=== PATIENT | male | born 1965 | race Caucasian/White ===

== ENCOUNTER 2016-12-22 22:02 | Emergency (ER) | payer OTHER ==
[~2016-12-22] VITALS: Ht 180.3 cm; Wt 81.6 kg
[~2016-12-22 22:02] MED LIST: ASPIRIN81 M1 PO; DESYREL50 M1 PO; FLUARIX QU60 MCG/0.1 IMVAC; HCTZ PO; LISINOPRIL10 M1 PO; NITROSTAT0.4 MG SL
[2016-12-22 22:08] VITALS: BP 123/71
--- NOTE | 2016-12-23 01:27 | NUR ---
PT TAKEN TO OF
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
--- NOTE | 2016-12-23 01:42 | NUR ---
Dr. Colon evaluating patient
[2016-12-23 02:24] VITALS: BP 122/81
--- NOTE | 2016-12-23 02:24 | NUR ---
Patient discharged with v/s stable. Written and verbal after care instructions given and explained. Patient alert, oriented and verbalized understanding of instructions. Ambulatory with steady gait. All questions addressed prior to discharge. ID band removed. Patient advised to follow up with PMD. Rx of TRAMADOL 50MG AND FLEXERIL 10MG given. Patient educated on indication of medication including possible reaction and side effects. Opportunity to ask questions provided and answered.
== END 2016-12-23 02:24 | disposition home or self-care (01) ==
LOC: MED 22:02
DX: S13.4XXA Sprain of ligaments of cervical spine, initial encounter (principal); J45.909 Unspecified asthma, uncomplicated; I10 Essential (primary) hypertension; Z88.0 Allergy status to penicillin; Z79.82 Long term (current) use of aspirin; Z79.899 Other long term (current) drug therapy; Y09 Assault by unspecified means; Y93.89 Activity, other specified; Y92.89 Other specified places as the place of occurrence of the external cause; Y99.8 Other external cause status

== ENCOUNTER 2017-01-08 08:19 | Emergency (ER) | payer OTHER ==
[~2017-01-08] VITALS: Ht 180.3 cm; Wt 90.7 kg
--- NOTE | 2017-01-08 08:19 | NUR ---
Patient BIB [facility] to be evaluated as pre-book, transferred to bed 4. RN evaluating patient at bedside.
--- NOTE | 2017-01-08 08:20 | NUR ---
Dr. Tran evaluating patient at bedside.
[2017-01-08 08:21] VITALS: BP 202/109
--- NOTE | 2017-01-08 08:22 | NUR ---
EKG done and shown to Dr. Tran.
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
[2017-01-08] MEDS ORDERED: cloNIDine 0.1 MG TAB PO ONE (08:30)
--- NOTE | 2017-01-08 09:37 | NUR ---
Dr. Tran re-assessing patient at bedside.
[2017-01-08] MEDS ORDERED: HYDROCHLOROTHIAZIDE 25 MG TAB PO SCH (10:15)
[2017-01-08 10:44] VITALS: BP 169/98
--- NOTE | 2017-01-08 10:45 | NUR ---
Patient discharged with v/s stable. Written and verbal after care instructions given and explained. Patient verbalized understanding. Ambulatory with steady gait. ACCOMPANIED BY [facility] TO BE BOOKED All questions addressed prior to discharge. Advised to follow up with PMD.
== END 2017-01-08 10:45 ==
LOC: MED 08:19
DX: Z02.89 Encounter for other administrative examinations (principal); I10 Essential (primary) hypertension; J45.909 Unspecified asthma, uncomplicated; Z88.0 Allergy status to penicillin; Z79.82 Long term (current) use of aspirin

== ENCOUNTER 2017-01-26 09:49 | Emergency (ER) | payer OTHER ==
[~2017-01-26] VITALS: Ht 180.3 cm; Wt 90.7 kg
[~2017-01-26 09:49] MED LIST changes: +ASPI81CT89 PO; -ASPIRIN81 M1 PO; -DESYREL50 M1 PO; -FLUARIX QU60 MCG/0.1 IMVAC; -HCTZ PO; +INFL60SU14 IMVAC; +LISI10TA11 PO; -LISINOPRIL10 M1 PO; +NITR0.4T1 SL; -NITROSTAT0.4 MG SL; +ORE25 PO; +TRAZ-286 PO
--- NOTE | 2017-01-26 09:49 | NUR ---
0946--Patient was BIB [place] [facility] at this time.
--- NOTE | 2017-01-26 09:50 | NUR ---
PATIENT BIB [facility] FOR PRE-BOOK CLEARANCE . PT STATES HE HAS HX HTN, ASTHMA AND IS PRE-DIABETIC . DENIES N/V/D; SKIN IS PINK/WARM/DRY; AAOX4 WITH EVEN AND STEADY GAIT; LUNGS CLEAR BL; HR EVEN AND REGULAR; PT DENIES ANY FEVER, CP, SOB, OR COUGH AT THIS TIME; PATIENT STATES PAIN OF 0/10 AT THIS TIME; VSS;[facility] AT CHAIR SIDE. ER MD MADE AWARE OF PT STATUS.
[2017-01-26 09:51] VITALS: BP 103/67
--- NOTE | 2017-01-26 10:13 | NUR ---
Dr. Mcintyre evaluating patient.
--- NOTE | 2017-01-26 10:17 | NUR ---
EKG IN PROGRESS
--- NOTE | 2017-01-26 10:19 | NUR ---
Patient to bed 05.
--- NOTE | 2017-01-26 10:20 | NUR ---
XRAY at bedside.
--- NOTE | 2017-01-26 10:33 | NUR ---
PT IS SLEEPING.[facility] AT BEDSIDE;NO ACUTE DISTRESS NOTED AT THIS TIME;WILL CONTINUE TO MONITOR PT.
[2017-01-26 10:58] VITALS: BP 112/71
--- NOTE | 2017-01-26 10:58 | NUR ---
Patient discharged with v/s stable. Written and verbal after care instructions given and explained. Patient verbalized understanding. Ambulatory with in custody. All questions addressed prior to discharge. Advised to follow up with PMD.
== END 2017-01-26 10:58 ==
LOC: MED 09:49
DX: Z02.89 Encounter for other administrative examinations (principal); I10 Essential (primary) hypertension; J45.909 Unspecified asthma, uncomplicated; Z88.0 Allergy status to penicillin; R05 Cough
CPT/HCPCS: 71010; 93005; 99283; Q0092

== ENCOUNTER 2017-10-07 22:04 | Emergency (ER) | payer OTHER ==
[~2017-10-07] VITALS: Ht 180.3 cm; Wt 113.4 kg
[2017-10-07 22:09] VITALS: BP 142/84
--- NOTE | 2017-10-07 22:10 | NUR ---
SENT TO LOBBY IN STABLE CONDITION, SLEEPY, A/W FOR A BED, BHAVESH NOTED
--- NOTE | 2017-10-08 01:18 | NUR ---
PT AMB TO ER BED 1
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
[2017-10-08] MEDS ORDERED: KETOROLAC 60 MG/2 ML VIAL IM ONE (01:35)
--- NOTE | 2017-10-08 02:10 | NUR ---
[facility] AT BEDSIDE.
[2017-10-08 02:20] VITALS: BP 132/76
--- NOTE | 2017-10-08 02:21 | NUR ---
[facility] PT WAIVER FORM SIGNED BY PT-PT CHARLES
--- NOTE | 2017-10-08 02:22 | NUR ---
Patient discharged with v/s stable. Written and verbal after care instructions given and explained. Patient alert, oriented and verbalized understanding of instructions. Police with in custody. All questions addressed prior to discharge. ID band removed. Patient advised to follow up with PMD. Rx of MOTRIN 800MG, PREDNISONE 20MG given. Patient educated on indication of medication including possible reaction and side effects. Opportunity to ask questions provided and answered.
== END 2017-10-08 02:22 | disposition home or self-care (01) ==
LOC: MED 22:40
DX: J11.1 Influenza due to unidentified influenza virus with other respiratory manifestations (principal); J45.909 Unspecified asthma, uncomplicated; E11.9 Type 2 diabetes mellitus without complications; I10 Essential (primary) hypertension; Z88.0 Allergy status to penicillin
CPT/HCPCS: 96372; 99283; J1885

== ENCOUNTER 2017-11-25 14:56 | Emergency (ER) | payer OTHER ==
[~2017-11-25] VITALS: Ht 180.3 cm; Wt 90.7 kg
[2017-11-25 14:58] VITALS: BP 158/91
--- NOTE | 2017-11-25 14:58 | NUR ---
PT BIBA TO BED 3.
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
--- NOTE | 2017-11-25 15:10 | NUR ---
Patient being evaluated by physician at bedside.
[2017-11-25] MEDS ORDERED: LORazepam 2 MG/ML VIAL IVP ONE (15:25)
[2017-11-25 15:53] LABS: BASOPHILS # (AUTO) 0.6 K/uL (0.00-0.22); BASOPHILS % (AUTO) 4.5 % (0.0-2.0); EOSINOPHILS # (AUTO) 0.1 K/uL (0-0.4); EOSINOPHILS % (AUTO) 1.1 % (0.0-4.0); HEMATOCRIT 44.7 % (36-52); HEMOGLOBIN 14.9 g/dL (12.0-18.0); LYMPHOCYTES % (AUTO) 8.1 % (20.5-51.1); MEAN CORPUSCULAR HEMOGLOBIN 29 pg (27-31); MEAN CORPUSCULAR HGB CONC 33 g/dL (33-37); MEAN CORPUSCULAR VOLUME 86 fL (80-94); MONOCYTES # (AUTO) 0.5 K/uL (0.8-1.0); MONOCYTES % (AUTO) 4.1 % (1.7-9.3); NEUTROPHILS # (AUTO) 10.4 K/uL (1.8-7.7); NEUTROPHILS % (AUTO) 82.2 % (42.2-75.2); PLATELET COUNT (AUTO) 218 K/uL (140-450); RED CELL DISTRIBUTION WIDTH 14.4 % (11.6-13.7); WHITE BLOOD COUNT (AUTO) 12.6 K/uL (4.8-10.8)
[2017-11-25] MEDS ORDERED: LISINOPRIL 10 MG TAB ONE (16:00)
[2017-11-25 16:04] LABS: ANION GAP 13.2 (8-16); CARBON DIOXIDE 28.9 mmol/L (21-32); CREATININE 1.6 mg/dL (0.7-1.3); POTASSIUM 3.1 mmol/L (3.5-5.1)
[2017-11-25 16:09] LABS: ALBUMIN 3.7 g/dL (3.4-5.0); TOTAL BILIRUBIN 0.4 mg/dL (0.0-1.0)
--- NOTE | 2017-11-25 17:18 | NUR ---
Patient discharged with v/s stable. Written and verbal after care instructions given and explained. Patient alert, oriented and verbalized understanding of instructions. Ambulatory with steady gait. All questions addressed prior to discharge. ID band removed. Patient advised to follow up with PMD. Rx of LISINOPRIL 10MG/TAB given. Patient educated on indication of medication including possible reaction and side effects. Opportunity to ask questions provided and answered.
--- NOTE | 2017-11-25 17:30 | NUR ---
RN GOLD LEAF ROLLER PRIYA NOTIFIED FOR BUS PASS.
[2017-11-25 17:31] VITALS: BP 157/90
[2017-11-26] MEDS ORDERED: LISINOPRIL 20 MG TAB PO SCH (09:00)
== END 2017-11-25 17:18 | disposition home or self-care (01) ==
LOC: MED 14:56
DX: R07.89 Other chest pain (principal); F19.90 Other psychoactive substance use, unspecified, uncomplicated; F12.90 Cannabis use, unspecified, uncomplicated; J45.909 Unspecified asthma, uncomplicated; I10 Essential (primary) hypertension; Z79.82 Long term (current) use of aspirin; Z79.899 Other long term (current) drug therapy; Z88.0 Allergy status to penicillin
CPT/HCPCS: 36415; 71045; 80053; 84484; 85025; 93005; 96374; 99285; J2060; Q0092

== ENCOUNTER 2018-02-03 19:24 | Inpatient (IN) | payer MEDICAID, OTHER ==
[~2018-02-03] VITALS: Ht 180.3 cm; Wt 86.2 kg
[2018-02-03 19:41] VITALS: BP 93/53
--- NOTE | 2018-02-03 20:58 | NUR ---
TO ER BED 10
--- NOTE | 2018-02-03 21:00 | NUR ---
PATIENT IS A 52 Y/O MALE WHO PRESENTS TO THE ED C/O ABD PAIN. PT STATES THAT HIS STOMACH HAS BEEN HURTING FOR ABOUT 4 DAYS. PT REPORTS 6/10 ACHING RUQ ABD PAIN THAT DOES NOT RADIATE. PT DENIES CP, SOB, REPORTS VOMITING DENIES NAUSEA/DIARHEA, REPORTS CONSTIPATION. PT AAOX4, RR EVEN/UNALBORED. PT REPOSITIONED FOR COMFORT, BED IN LOWEST POSITION. ER MD DR. NIÑO NOTIFIED. WILL CONTINUE TO MONITOR.
--- NOTE | 2018-02-03 21:03 | NUR ---
PATIENT UNABLE TO PROVIDE URINE AT THIS TIME.
[2018-02-03] MEDS ORDERED: ONDANSETRON 4 MG/2 ML VIAL IVP ONE (21:20)
[2018-02-03] MEDS ORDERED: NACL 0.9% 1,500 ML IV ONE (21:20)
[2018-02-03] MEDS ORDERED: KETOROLAC 30 MG/ML VIAL IVP ONE (21:20)
[2018-02-03 21:55] LABS: BASOPHILS # (AUTO) 0.1 K/uL (0.00-0.22); BASOPHILS % (AUTO) 0.9 % (0.0-2.0); EOSINOPHILS % (AUTO) 0.4 % (0.0-4.0); HEMATOCRIT 50.9 % (36-52); HEMOGLOBIN 16.9 g/dL (12.0-18.0); LYMPHOCYTES # (AUTO) 1.8 K/uL (2.0-11.5); LYMPHOCYTES % (AUTO) 17.9 % (20.5-51.1); MEAN CORPUSCULAR HEMOGLOBIN 29 pg (27-31); MEAN CORPUSCULAR HGB CONC 33 g/dL (33-37); MEAN CORPUSCULAR VOLUME 86.4 fL (80-94); MONOCYTES # (AUTO) 0.9 K/uL (0.8-1.0); MONOCYTES % (AUTO) 8.7 % (1.7-9.3); NEUTROPHILS # (AUTO) 7.4 K/uL (1.8-7.7); NEUTROPHILS % (AUTO) 72.1 % (42.2-75.2); PLATELET COUNT (AUTO) 299 K/uL (140-450); RED BLOOD CELL COUNT(AUTO) 5.89 MIL/uL (4.20-6.10); RED CELL DISTRIBUTION WIDTH 14.6 % (11.6-13.7); WHITE BLOOD COUNT (AUTO) 10.2 K/uL (4.8-10.8)
[2018-02-03 22:03] LABS: ANION GAP 14.2 (8-16); CARBON DIOXIDE 28.4 mmol/L (21-32); CREATININE 2.6 mg/dL (0.7-1.3); POTASSIUM 3.6 mmol/L (3.5-5.1)
[2018-02-03 22:09] LABS: TOTAL BILIRUBIN 0.5 mg/dL (0.0-1.0)
[2018-02-03] MEDS ORDERED: DOCUSATE SODIUM 100 MG GELCAP PO PRN (22:55)
[2018-02-03] MEDS ORDERED: MORPHINE SULFATE 4 MG/ML SYR IVP PRN (22:55)
[2018-02-03] MEDS ORDERED: KETOROLAC 30 MG/ML VIAL IVP PRN (22:55)
[2018-02-03] MEDS ORDERED: ONDANSETRON 4 MG/2 ML VIAL IM/IVP PRN (22:55)
--- NOTE | 2018-02-03 22:55 | NUR ---
Patient will be admitted to care of DR. RICE. Admited to TELE. Will go to room 105B. Belongings list completed. Report to CARMEN SOMMER.
[2018-02-03 23:00] VITALS: BP 183/81
[2018-02-03] MEDS ORDERED: NITROGLYCERIN 0.4 MG TAB SL PRN (23:00)
[2018-02-03] MEDS ORDERED: traZODone 50 MG TAB PO PRN (23:00)
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
[2018-02-03] MEDS ORDERED: NICOTINE TRANSD SYS 21 MG/24 HR PATCH TD PRN (23:45)
[2018-02-03] MEDS ORDERED: TEMAZEPAM 15 MG CAP PO PRN (23:45)
[2018-02-03 23:48] LABS: AMYLASE 233 U/L (25-115); FREE T4 (FREE THYROXINE) 1.48 ng/dL (0.76-1.46); HDL CHOLESTEROL 67 mg/dL (40-60); LDL (CALC) 118 mg/dL (60-100); MAGNESIUM 1.9 mg/dL (1.8-2.4); PHOSPHORUS 4.8 mg/dL (2.5-4.9); THYROID STIMULATING HORMONE 1.23 uIU/mL (0.34-3.74); TRIGLYCERIDES 95 mg/dL (30-150)
[2018-02-03] MEDS: NACL 0.9% 1,000 ML IV SCH (23:48)
[2018-02-03] MEDS ORDERED: hydrALAZINE 20 MG/ML VIAL IVP PRN (23:50)
[2018-02-04] MEDS ORDERED: LISINOPRIL 20 MG TAB PO SCH (01:00)
[2018-02-04] MEDS ORDERED: HYDROCHLOROTHIAZIDE 25 MG TAB PO SCH (01:00)
[2018-02-04] MEDS: HYDROcodone/APAP 7.5/325 MG 1 TAB PO PRN ×3 (01:19→16:49)
--- NOTE | 2018-02-04 01:19 | NUR ---
SCHEDULED MEDICATION AND NORCO GIVEN FOR PAIN 04/26. MEDICATION TOLERATED WELL. WILL CONTINUE TO MONITOR.
[2018-02-04] MEDS ORDERED: MAGNESIUM HYDROXIDE 2400 MG/30 ML UDC PO PRN (02:05)
--- NOTE | 2018-02-04 02:19 | NUR ---
PT STATED PAIN LEVEL HAD DECREASED 5/10; A TOLERABLE LEVEL. PT QUICKLY FELL BACK ASLEEP. WILL CONTINUE TO MONITOR.
[2018-02-04 04:00] VITALS: BP 133/83
--- NOTE | 2018-02-04 04:00 | NUR ---
VITAL SIGNS TOLERATED WELL. NO S/S OF RESPIRATORY DISTRESS OR DISCOMFORT. PT QUICKLY RETURNED BACK TO SLEEP.
[2018-02-04] MEDS: NACL 0.9% 1,000 ML IV SCH ×4 (05:33→21:30)
--- NOTE | 2018-02-04 06:00 | NUR ---
PT CONTINUES TO SLEEP. WILL CONTINUE TO MONITOR.
--- NOTE | 2018-02-04 07:30 | NUR ---
ENDORSED PT CARE TO DAY SHIFT NURSE XENA FOR CONTINUITY OF CARE. PT IN STABLE CONDITION.
--- NOTE | 2018-02-04 07:31 | NUR ---
RECEIVED REPORT FROM THE CITY ATTORNEY NURSE AT BEDSIDE FOR CONTINUITY OF CARE. PT IS SLEEPING. WILL CONTINUE TO MONITOR PT.
[2018-02-04 08:00] VITALS: BP 157/87
--- NOTE | 2018-02-04 08:00 | NUR ---
PT IS AWAKE. V/S WITHIN NORMAL RANGE. INTRODUCED OURSELF AND UPDATE THE BOARD. PT IS ON ROOM AIR. NO SIGN OF DISTRESS NOTED. SKIN INTACT. IV ON R HAND 22G NS AT 150ML INFUSING. WILL CONTINUE TO MONITOR PT.
[2018-02-04 08:34] LABS: PROTHROMBIN TIME 10.8 secs (10.8-13.4)
[2018-02-04] MEDS ORDERED: ATORVASTATIN 20 MG TAB PO SCH (09:00)
[2018-02-04] MEDS ORDERED: LISINOPRIL 10 MG TAB PO SCH (09:00)
[2018-02-04] MEDS: SENNA 8.6 MG TAB PO SCH (09:05)
[2018-02-04] MEDS: ASPIRIN 81 MG TAB.CHEW PO SCH (09:06)
[2018-02-04] MEDS: HYDROCHLOROTHIAZIDE 25 MG TAB PO SCH ×2 (09:06→16:47)
[2018-02-04] MEDS: PANTOPRAZOLE 40 MG INJ VIAL IVP SCH (09:07)
--- NOTE | 2018-02-04 09:13 | NUR ---
ADMINISTERED MORNING MEDS. PT TOLERATED WELL. REQUESTED PAIN MED. GAVE NORCO.
--- NOTE | 2018-02-04 09:19 | NUR ---
PATIENT HAS BEEN SCREENED AND CATEGORIZED MODERATE NUTRITION RISK. PATIENT WILL BE SEEN WITHIN 3-5 DAYS OF ADMISSION. 02/06/18 - 02/08/[address] Addendum: 02/04/18 at [address] PATIENT HAS BEEN RESCREENED AND CATEGORIZED HIGH NUTRITION RISK. PATIENT WILL BE SEEN WITHIN 1-2 DAYS OF ADMISSION. 02/04/18 - 02/05/[address]
--- NOTE | 2018-02-04 11:20 | NUR ---
PT SLEEPING. NO SIGNS OF DISTRESS. WILL CONTINUE TO MONITOR PT.
[2018-02-04] MEDS ORDERED: traZODone 50 MG TAB PO PRN (11:58)
[2018-02-04 12:00] VITALS: BP 131/82
--- NOTE | 2018-02-04 13:23 | NUR ---
PT SLEEPING SOUNDLY. EMPTIED 700ML OF LORA URINE. REMINDED PT TO GIVE URINE SAMPLE. HUNG NEW IV FLUID. PT TOLERATING WELL. WILL CONTINUE TO MONITOR PT.
[2018-02-04 13:36] VITALS: BP 133/89
--- NOTE | 2018-02-04 14:31 | NUR ---
02/04/18 RD INITIAL ASSESSMENT COMPLETED PLEASE REFER TO NUTRITION ASSESSMENT UNDER CARE ACTIVITY FOR ESTIMATED NUTRITIONAL NEEDS. 1. CONTINUE NPO MEDICALLY APPROPRIATE 2. IF AND WHEN IT IS MEDICALLY APPROPRIATE, ADVANCE TO A CARDIAC DIET. 3. PROVIDED PT WITH PANCREATITIS NUTRITION THERAPY. 4. RD TO FOLLOW-UP 3-5 DAYS, MODERATE RISK SHAWN ACOSTA RD
--- NOTE | 2018-02-04 16:00 | NUR ---
PT SLEEPING SOUNDLY. NO SIGNS OF DISTRESS. WILL CONTINUE TO MONITOR PT.
--- NOTE | 2018-02-04 16:03 | NUR ---
CM NOTE INITIAL REVIEW DONE
[2018-02-04 16:34] VITALS: BP 165/89
--- NOTE | 2018-02-04 17:05 | NUR ---
PT ACCIDENTALLY PULLED OUT IV. NEW IV PLACED IN RIGHT HAND 22G WITH 2 ATTEMPTS. PT TOLERATED IT WELL. LOLA
[2018-02-04 17:10] LABS: APPEARANCE,URINE CLEAR (CLEAR); BILIRUBIN,URINE NEGATIVE (NEGATIVE); BLOOD, URINE 1+ (NEGATIVE); COLOR,URINE YELLOW (YELLOW); LEUKOCYTE ESTERASE ,URINE NEGATIVE (NEGATIVE); NITRITE, URINE NEGATIVE (NEGATIVE); UGLUCOSE NEGATIVE (NEGATIVE)
[2018-02-04 17:12] LABS: BARBITURATE, URINE NEG. ng/ml (NEG <=200); BENZODIAZEPINE, URINE NEG. ng/mL (NEG <=200); CANNABINOID, URINE POS. ng/mL (NEG <=50); COCAINE, URINE NEG. ng/mL (NEG <=300); OPIATE, URINE NEG. ng/mL (NEG <=2000); PHENCYCLIDINE SCREEN,URINE NEG. ng/mL (NEG <=25)
[2018-02-04 17:23] LABS: RBC,URINE 3-10 (FEW) /HPF (0-5); WBC,URINE 0-5 (RARE) /HPF (0-5)
[2018-02-04 17:24] LABS: CALCIUM OXALATE CRYSTALS,UR 0-10 /HPF (None Seen)
--- NOTE | 2018-02-04 19:15 | NUR ---
RECEIVED REPORT FROM DAY SHIFT NURSE TRE-ROS. PT SLEEPING IN BED. NO S/S OF RESPIRATORY DISTRESS OR DISCOMFORT NOTED AT THIS TIME. AOX4, ON ROOM AIR WITH RIGHT HAND 22G-NS 0.9% RUNNING AT 150ML/HR. NPO EXCEPT FOR MEDICATIONS. DISCUSSED PLAN OF CARE AND PT VERBALIZED UNDERSTANDING. UNDATED WHITE BOARD. BED IN LOWEST POSITION. BED SIDE TABLE AND CALL LIGHT WITHIN REACH. WILL CONTINUE TO MONITOR.
--- NOTE | 2018-02-04 19:15 | NUR ---
ENDORSED PT TO THE NIGHTSHIFT NURSE AT BEDSIDE FOR CONTINUITY OF CARE. PT IN STABLE CONDITION.
[2018-02-04 20:00] VITALS: BP 162/97
--- NOTE | 2018-02-04 20:20 | NUR ---
PT EXPERIENCING SOB CAUSED BY SUDDEN ANXIETY. PT STATED HE EXPERIENCES ANXIETY QUITE OFTEN WHEN IN ENCLOSED SPACES. SPOKE WITH DR. CULP. DR SAID SHE WOULD SPEAK WITH PT AND POSSIBLY ORDER ATIVAN FOR ANXIETY. WILL CONTINUE TO MONITOR.
[2018-02-04] MEDS ORDERED: LORazepam 1 MG TAB PO SCH (20:30)
[2018-02-04] MEDS: LISINOPRIL 20 MG TAB PO SCH (21:18)
[2018-02-04] MEDS: TEMAZEPAM 15 MG CAP PO SCH (21:18)
--- NOTE | 2018-02-04 21:18 | NUR ---
SCHEDULED MEDICATIONS GIVEN. PT TOLERATED WELL. WILL CONTINUE TO MONITOR.
--- NOTE | 2018-02-04 21:30 | NUR ---
NEW IVF NS 0.9% BAG HUNG RUNNING AT 150ML/HR. PT TOLERATED WELL. WILL CONTINUE TO MONITOR.
--- NOTE | 2018-02-04 23:20 | NUR ---
PT SLEEPING AT THIS TIME. NO S/S OF RESPIRATORY DISTRESS OR DISCOMFORT NOTED AT THIS TIME. WILL CONTINUE TO MONITOR.
[2018-02-05] VITALS (7 sets, daily range): BP systolic 150–178; BP diastolic 69–111
--- NOTE | 2018-02-05 01:05 | NUR ---
PT CONTINUES TO SLEEP. WILL CONTINUE TO MONITOR.
--- NOTE | 2018-02-05 03:12 | NUR ---
PT CONTINUES TO SLEEP. WILL CONTINUE TO MONITOR.
[2018-02-05] MEDS: NACL 0.9% 1,000 ML IV SCH ×4 (04:30→20:47)
--- NOTE | 2018-02-05 05:00 | NUR ---
PT SLEEPING AT THIS TIME. WILL CONTINUE TO MONITOR.
[2018-02-05 06:44] LABS: BASOPHILS # (AUTO) 0.1 K/uL (0.00-0.22); BASOPHILS % (AUTO) 1.4 % (0.0-2.0); EOSINOPHILS % (AUTO) 0.5 % (0.0-4.0); HEMATOCRIT 49.4 % (36-52); HEMOGLOBIN 16.4 g/dL (12.0-18.0); LYMPHOCYTES # (AUTO) 1.5 K/uL (2.0-11.5); LYMPHOCYTES % (AUTO) 16.6 % (20.5-51.1); MEAN CORPUSCULAR HEMOGLOBIN 29 pg (27-31); MEAN CORPUSCULAR HGB CONC 33 g/dL (33-37); MONOCYTES # (AUTO) 0.6 K/uL (0.8-1.0); MONOCYTES % (AUTO) 6.3 % (1.7-9.3); NEUTROPHILS # (AUTO) 6.7 K/uL (1.8-7.7); NEUTROPHILS % (AUTO) 75.2 % (42.2-75.2); PLATELET COUNT (AUTO) 268 K/uL (140-450); RED BLOOD CELL COUNT(AUTO) 5.68 MIL/uL (4.20-6.10); RED CELL DISTRIBUTION WIDTH 14.4 % (11.6-13.7)
[2018-02-05 07:00] LABS: ANION GAP 13.7 (8-16); CARBON DIOXIDE 25.7 mmol/L (21-32); CREATININE 1.2 mg/dL (0.7-1.3); POTASSIUM 3.4 mmol/L (3.5-5.1)
--- NOTE | 2018-02-05 07:05 | NUR ---
ENDORSED PT CARE TO DAY SHIFT NURSE SCOT FOR CONTINUITY OF CARE. PT IN STABLE CONDITION.
--- NOTE | 2018-02-05 07:06 | NUR ---
RECEIVED REPORT FROM DEALER SALES MANAGER RN. PATIENT IS AAOX4, NO S/SX OF ACUTE DISTRESS NOTED AT THIS TIME. HAS IV TO THE RIGHT HAND 22G, NS INFUSING AT 150 ML/HR. SITE IS CLEAN, DRY, PATENT AND INTACT. DISCUSSED PLAN OF CARE WITH PATIENT AND HE VERBALIZED UNDERSTANDING. BED IN LOWEST POSITION, SIDE RAILS UP X2, CALL LIGHT WITHIN REACH. WILL CONTINUE TO MONITOR.
--- NOTE | 2018-02-05 07:10 | NUR ---
ENDORSED PT CARE TO DAY SHIFT NURSE SCOT FOR CONTINUITY OF CARE. PT IN STABLE CONDITION. Addendum: 02/05/18 at 0728 by Sally Hernández RN PLEASE DISREGARD PREVIOUS NOTE. WRONG PATIENT.
[2018-02-05] MEDS: SENNA 8.6 MG TAB PO SCH (09:00)
[2018-02-05 09:06] LABS: T4 (THYROXINE) 10.8 ug/dL (4.5-12.0)
[2018-02-05] MEDS: HYDROCHLOROTHIAZIDE 25 MG TAB PO SCH ×2 (09:24→18:20)
[2018-02-05] MEDS: ASPIRIN 81 MG TAB.CHEW PO SCH (09:24)
[2018-02-05] MEDS: ATORVASTATIN 20 MG TAB PO SCH (09:25)
[2018-02-05] MEDS: PANTOPRAZOLE 40 MG INJ VIAL IVP SCH (09:25)
[2018-02-05] MEDS ORDERED: LORazepam 1 MG TAB PO SCH (09:30)
[2018-02-05] MEDS ORDERED: POTASSIUM CHLORIDE 10 MEQ TABER PO SCH (12:00)
[2018-02-05] MEDS ORDERED: LISINOPRIL 20 MG TAB PO SCH (12:00)
--- NOTE | 2018-02-05 16:10 | NUR ---
MADE DR REED AWARE OF PATIENTS ELEVATED BP. 178/101. WILL FOLLOW THROUGH WITH ORDERS.
[2018-02-05] MEDS ORDERED: METOPROLOL 50 MG TAB PO SCH (16:30)
--- NOTE | 2018-02-05 16:43 | NUR ---
METOPROLOL GIVEN TO PATIENT. NO SIGNS AND SYMPTOMS OF ACUTE DISTRESS NOTED AT THIS TIME.
--- NOTE | 2018-02-05 18:00 | NUR ---
RECHECKED PATIENTS BLOOD PRESSURE AFTER GIVING ONE TIME DOSE METOPROLOL 50 MG. IT WAS 156/93, HEART RATE 61. WILL ADMINISTER PATIENTS ORETIC BLOOD PRESSURE MEDICATION.
--- NOTE | 2018-02-05 19:17 | NUR ---
ENDORSED PATIENT TO KINDERGARTEN PARAPROFESSIONAL RN FOR CONTINUITY OF CARE. PATIENT IN STABLE CONDITION.
--- NOTE | 2018-02-05 19:18 | NUR ---
RECEIVED REPORT AT PT BEDSIDE FROM DAY SHIFT RN, FOR CONTINUITY OF CARE. PATIENT IS AWAKE, A/OX4, ON ROOM AIR. ABLE TO MAKE NEEDS KNOWN, ABLE TO FOLLOW COMMANDS. PT SKIN IS INTACT, WARM AND DRY. PATIENT HAS PERIPHERAL IV SITE TO RIGHT HAND 22G, ASYMPTOMATIC, INTACT, PATENT. SR/ST DEPRESSION ON MONITOR, RESPIRATIONS EVEN AND UNLABORED. DISCUSSED PLAN OF CARE WITH PT, PT VERBALIZED UNDERSTANDING. PT STABLE, NO SIGNS OF DISTRESS NOTED AT THIS TIME. BED IN LOWEST POSITION, CALL LIGHT WITHIN REACH. WILL CONTINUE TO MONITOR.
[2018-02-05] MEDS: LISINOPRIL 20 MG TAB PO SCH (20:31)
[2018-02-05] MEDS: METOPROLOL 50 MG TAB PO SCH (20:31)
[2018-02-05] MEDS: TEMAZEPAM 15 MG CAP PO SCH (20:31)
--- NOTE | 2018-02-05 20:35 | NUR ---
ADMINISTERED SCHEDULED MEDICATIONS PER ORDER, PT TOLERATED WELL. PT STABLE, NO SIGNS OF DISTRESS NOTED AT THIS TIME. BED IN LOWEST POSITION, CALL LIGHT WITHIN REACH. WILL CONTINUE TO MONITOR.
[2018-02-06] VITALS: BP 156/86
--- NOTE | 2018-02-06 | NUR ---
BLOOD PRESSURE NOT ELEVATED NOW, HEART RATE IS SABRINA, ALL OTHER VITAL SIGNS WNL. PT STABLE, NO SIGNS OF DISTRESS NOTED AT THIS TIME. BED IN LOWEST POSITION, CALL LIGHT WITHIN REACH. WILL CONTINUE TO MONITOR.
--- NOTE | 2018-02-06 02:25 | NUR ---
PT STABLE, NO SIGNS OF DISTRESS NOTED AT THIS TIME. BED IN LOWEST POSITION, CALL LIGHT WITHIN REACH. WILL CONTINUE TO MONITOR.
[2018-02-06 04:00] VITALS: BP 158/87
--- NOTE | 2018-02-06 04:00 | NUR ---
VITAL SIGNS WITHIN NORMAL LIMITS, WITH THE EXCEPTION OF SLIGHTLY ELEVATED BP. PT STABLE, NO SIGNS OF DISTRESS NOTED AT THIS TIME. BED IN LOWEST POSITION, CALL LIGHT WITHIN REACH. WILL CONTINUE TO MONITOR.
[2018-02-06] MEDS: NACL 0.9% 1,000 ML IV SCH ×3 (04:50→16:41)
--- NOTE | 2018-02-06 05:30 | NUR ---
IV INFILTRATED, NEW IV WAS STARTED ON LEFT HAND 24G. PT TOLERATED WELL.
--- NOTE | 2018-02-06 06:26 | NUR ---
PT STABLE, NO SIGNS OF DISTRESS NOTED AT THIS TIME. BED IN LOWEST POSITION, CALL LIGHT WITHIN REACH. WILL CONTINUE TO MONITOR.
--- NOTE | 2018-02-06 07:14 | NUR ---
ENDORSED PT TO DAYS SHIFT RN FOR CONTINUITY OF CARE. PT IN STABLE CONDITION.
--- NOTE | 2018-02-06 07:15 | NUR ---
RECEIVED REPORT FROM THE ACCOUNTING OFFICE MANAGER NURSE AT BEDSIDE FOR CONTINUITY OF CARE. PT IS SLEEPING. IV ON L HAND 24G NS AT 150ML/HR. ROOM AIR. WILL BE BACK TO ASSESS PT.
[2018-02-06 08:00] VITALS: BP 167/88
[2018-02-06] MEDS ORDERED: LORazepam 1 MG TAB PO SCH (08:30)
[2018-02-06] MEDS: HYDROCHLOROTHIAZIDE 25 MG TAB PO SCH ×2 (09:05→16:38)
[2018-02-06] MEDS: PANTOPRAZOLE 40 MG INJ VIAL IVP SCH (09:05)
[2018-02-06] MEDS: METOPROLOL 50 MG TAB PO SCH ×2 (09:05→21:24)
[2018-02-06] MEDS: SENNA 8.6 MG TAB PO SCH (09:06)
[2018-02-06] MEDS: ATORVASTATIN 20 MG TAB PO SCH (09:06)
--- NOTE | 2018-02-06 09:10 | NUR ---
ADMINISTERED MORNING MEDS. PT TOLERATED WELL. C/O ANXIETY. ASKED MD FOR ORDER FOR ATIVAN. ADMINISTERED TO PT. WILL CONTINUE TO MONITOR PT.
[2018-02-06 11:03] LABS: BASOPHILS # (AUTO) 0.1 K/uL (0.00-0.22); BASOPHILS % (AUTO) 0.9 % (0.0-2.0); EOSINOPHILS % (AUTO) 0.1 % (0.0-4.0); HEMATOCRIT 49.3 % (36-52); HEMOGLOBIN 16.5 g/dL (12.0-18.0); LYMPHOCYTES % (AUTO) 15.9 % (20.5-51.1); MEAN CORPUSCULAR HEMOGLOBIN 29 pg (27-31); MEAN CORPUSCULAR HGB CONC 34 g/dL (33-37); MEAN CORPUSCULAR VOLUME 85.4 fL (80-94); MONOCYTES # (AUTO) 0.5 K/uL (0.8-1.0); NEUTROPHILS # (AUTO) 4.9 K/uL (1.8-7.7); NEUTROPHILS % (AUTO) 76.1 % (42.2-75.2); PLATELET COUNT (AUTO) 285 K/uL (140-450); RED BLOOD CELL COUNT(AUTO) 5.77 MIL/uL (4.20-6.10); RED CELL DISTRIBUTION WIDTH 14.3 % (11.6-13.7); WHITE BLOOD COUNT (AUTO) 6.5 K/uL (4.8-10.8)
[2018-02-06 11:14] LABS: ANION GAP 17.4 (8-16); CARBON DIOXIDE 24.5 mmol/L (21-32); CREATININE 1.2 mg/dL (0.7-1.3); POTASSIUM 3.9 mmol/L (3.5-5.1)
--- NOTE | 2018-02-06 11:21 | NUR ---
PER DR. REED, PT IS TO HAVE A FULL LIQUID DIET. DR. CAT WILL BE HERE FOR CONSULT AND WILL HAVE CHOLECYSTECTOMY TOMORROW. WILL BE NPO AT MIDNIGHT. CONTACT FNS TO BRING HIM A TRAY FOR LUNCH. FOR NOW, START WITH JELLO. NEW FLUID BAG HUNG.
[2018-02-06 11:48] LABS: MAGNESIUM 1.4 mg/dL (1.8-2.4); PHOSPHORUS 2.7 mg/dL (2.5-4.9)
[2018-02-06 12:00] VITALS: BP 167/85
--- NOTE | 2018-02-06 13:12 | NUR ---
PT TAKING A SHOWER. D/C'D PT FROM IV. WRAPPED WITH GLOVE AND TAPE SO IV DOEN'T GET WET. EXTRA TOWELS AN SOAP. REMOVED THE TELE MONITOR. WILL CONTINUE TO MONITOR PT.
--- NOTE | 2018-02-06 14:39 | NUR ---
PT IS RESTING COMFORTABLY. NO SIGNS OF DISTRESS. WILL CONTINUE TO MONITOR PT.
[2018-02-06 16:00] VITALS: BP 139/84
--- NOTE | 2018-02-06 16:26 | NUR ---
IV GOT PULLED OUT. RESTARTED ANOTHER IV ON THE L HAND 22G. 1 ATTEMPT. PT TOLERATED WELL. WOULD LIKE TO GO FOR A WALK. EXPLAINED TO PT, PUSH THE IV POLE ALONG WITH HIM. WILL BE FINE. WILL CONTINUE TO MONITOR PT.
--- NOTE | 2018-02-06 16:38 | NUR ---
SIGNED THE CONSENT FORM FOR THE [employer] FOR TOMORROW WITH DR. CAT. PT WILL BE NPO AFTER MIDNIGHT. PT WOULD LIKE TO GO FOR A WALK. WILL CONTINUE TO MONITOR PT.
--- NOTE | 2018-02-06 19:15 | NUR ---
ENDORSED PT TO THE ASSOCIATE PROFESSOR OF MEDICINE NURSE AT BEDSIDE FOR CONTINUITY OF CARE. PT IS IN STABLE CONDITION. HUNG A NEW IV BAG. PT REQUESTING PAIN MED. ENDORSED TO RN.
--- NOTE | 2018-02-06 19:25 | NUR ---
RECEIVED REPORT FROM DAY SHIFT RN, PATIENT RESTING IN BED, AWAKE ALERT ORIENTED X4, NO S/S OF DISTRESS NOTED, RESPIRATION EVEN AND UNLABORED, ON ROOM AIR. STATED PAIN 6/10, WILL ADMINISTER PAIN MEDICATION ORDERED. IV PATENT AND INTACT, INFUSING NS AT 150ML/HR. PLAN OF CARE DISCUSSED, PATIENT VERBALIZED UNDERSTANDING, CALL LIGHT WITH REACH, SAFETY MEASURE ENSURED, WILL CONTINUE TO MONITOR.
[2018-02-06] MEDS: HYDROcodone/APAP 7.5/325 MG 1 TAB PO PRN (19:42)
--- NOTE | 2018-02-06 19:42 | NUR ---
BP 156/80, HR 65, PAIN MEDICATION ADMINISTERED ORDERED, WILL CONTINUE TO MONITOR.
[2018-02-06 19:52] VITALS: BP 156/80
[2018-02-06] MEDS: LISINOPRIL 20 MG TAB PO SCH (21:24)
[2018-02-06] MEDS: TEMAZEPAM 15 MG CAP PO SCH (21:24)
--- NOTE | 2018-02-06 21:27 | NUR ---
DUE MEDICATION GIVEN, PATIENT TOLERATED WELL. NO S/S OF DISTRESS NOTED, PATIENT VERBALIZED UNDERSTANDING OF NOT TO EAT AND DRINK AFTER MIDNIGHT. CALL LIGHT WITHIN REACH, SAFETY MEASURE ENSURED, WILL CONTINUE TO MONITOR.
--- NOTE | 2018-02-06 23:40 | NUR ---
PATIENT IS SLEEPING, NO S/S OF DISTRESS NOTED, RESPIRATION EVEN AND UNLABORED, CALL LIGHT WITHIN REACH, SAFETY MEASURE ENSURED, WILL CONTINUE TO MONITOR.
[2018-02-07] VITALS (11 sets, daily range): BP systolic 82–213; BP diastolic 42–133
[2018-02-07] MEDS: NACL 0.9% 1,000 ML IV SCH ×4 (00:33→20:13)
--- NOTE | 2018-02-07 01:20 | NUR ---
NO CHANGE IN CONDITION, PATIENT IS SLEEPING, NO S/S OF DISTRESS NOTED, RESPIRATION EVEN AND UNLABORED, CALL LIGHT WITHIN REACH, SAFETY MEASURE ENSURED, WILL CONTINUE TO MONITOR.
--- NOTE | 2018-02-07 03:21 | NUR ---
PATIENT IS SLEEPING, NO S/S OF DISTRESS NOTED, RESPIRATION EVEN AND UNLABORED, CALL LIGHT WITHIN REACH, SAFETY MEASURE ENSURED, WILL CONTINUE TO MONITOR.
--- NOTE | 2018-02-07 05:45 | NUR ---
PATIENT IS SLEEPING, NO S/S OF DISTRESS NOTED, RESPIRATION EVEN AND UNLABORED, CALL LIGHT WITHIN REACH, SAFETY MEASURE ENSURED, WILL CONTINUE TO MONITOR.
[2018-02-07 07:03] LABS: BASOPHILS # (AUTO) 0.1 K/uL (0.00-0.22); BASOPHILS % (AUTO) 0.9 % (0.0-2.0); EOSINOPHILS % (AUTO) 0.8 % (0.0-4.0); HEMATOCRIT 49.6 % (36-52); HEMOGLOBIN 16.5 g/dL (12.0-18.0); LYMPHOCYTES # (AUTO) 1.8 K/uL (2.0-11.5); LYMPHOCYTES % (AUTO) 30.1 % (20.5-51.1); MEAN CORPUSCULAR HEMOGLOBIN 29 pg (27-31); MEAN CORPUSCULAR HGB CONC 33 g/dL (33-37); MONOCYTES # (AUTO) 0.6 K/uL (0.8-1.0); MONOCYTES % (AUTO) 9.6 % (1.7-9.3); NEUTROPHILS # (AUTO) 3.5 K/uL (1.8-7.7); NEUTROPHILS % (AUTO) 58.6 % (42.2-75.2); PLATELET COUNT (AUTO) 267 K/uL (140-450); RED BLOOD CELL COUNT(AUTO) 5.77 MIL/uL (4.20-6.10); RED CELL DISTRIBUTION WIDTH 14.2 % (11.6-13.7)
--- NOTE | 2018-02-07 07:12 | NUR ---
ENDORSED PLAN OF CARE TO DAY SHIFT, PATIENT IS IN STABLE CONDITION.
--- NOTE | 2018-02-07 07:13 | NUR ---
RECEIVED REPORT FROM GARY. PT SLEEPING QUIETLY. RESPIRATIONS ARE EVEN, UNLABORED. SKIN COLOR WITHIN NORMAL LIMITS. IV FLUIDS INFUSING. IV SITE WITHIN NORMAL LIMITS. APPEARS IN NO ACUTE DISTRESS. PLAN OF CARE REVIEWED. CALL STUBBS AT BEDSIDE. BED LOCKED IN LOW POSITION. SIDE RAILS UPX2. NO IMMEDIATE NEEDS AT THIS TIME. WILL CONTINUE TO MONITOR.
[2018-02-07 07:26] LABS: MAGNESIUM 1.5 mg/dL (1.8-2.4)
[2018-02-07 07:28] LABS: ANION GAP 11.3 (8-16); CARBON DIOXIDE 29.5 mmol/L (21-32); CREATININE 1.2 mg/dL (0.7-1.3); POTASSIUM 3.8 mmol/L (3.5-5.1)
[2018-02-07] MEDS: METOPROLOL 50 MG TAB PO SCH ×2 (08:27→20:51)
[2018-02-07] MEDS: SENNA 8.6 MG TAB PO SCH (08:28)
[2018-02-07] MEDS: ATORVASTATIN 20 MG TAB PO SCH (08:28)
[2018-02-07] MEDS: HYDROCHLOROTHIAZIDE 25 MG TAB PO SCH ×2 (08:28→17:00)
[2018-02-07] MEDS: PANTOPRAZOLE 40 MG INJ VIAL IVP SCH (08:29)
--- NOTE | 2018-02-07 08:30 | NUR ---
SCHEDULED MEDS GIVEN. PT TOLERATED WELL. PT REPORTS LOOSE STOOLS; SENNA HELD. HEART RATE 57. METOPROLOL HELD. PLAN OF CARE REVIEWED. ALL PERSONAL ITEMS REMOVED. CHLORHEXADINE WIPES PROVIDED FOR PREOP SKIN CARE. WILL CONTINUE TO MONITOR.
[2018-02-07] MEDS ORDERED: BUPIVACAINE-MPF 0.25% 30 ML VIAL INJ ONE (10:57)
[2018-02-07] MEDS ORDERED: MAG SULF 2000 MG/WATER PREMIX 50 ML IV SCH (11:00)
[2018-02-07] MEDS ORDERED: fentaNYL 0.05 MG/ML VIAL ONE (11:05)
[2018-02-07] MEDS ORDERED: MIDAZOLAM 2 MG/2 ML VIAL ONE (11:05)
[2018-02-07] MEDS ORDERED: MEPERIDINE 50 MG/ML SYR ONE (11:05)
--- NOTE | 2018-02-07 11:47 | NUR ---
MAGNESIUM INFUSING. IV SITE WITHIN NORMAL LIMITS. PT AWAITING OR. WILL CONTINUE TO MONITOR.
--- NOTE | 2018-02-07 11:51 | NUR ---
PT HEADING TO OR.
[2018-02-07] MEDS ORDERED: hydrALAZINE 20 MG/ML VIAL ONE (12:00)
[2018-02-07] MEDS ORDERED: SEVOFLURANE 250 ML BTL INH ONE (12:00)
[2018-02-07] MEDS ORDERED: LABETALOL 100 MG/20 ML VIAL ONE ×2 (12:00→15:37)
[2018-02-07] MEDS ORDERED: SUCCINYLCHOLINE CHLORIDE 200 MG/10 ML VIAL IVP ONE (12:00)
[2018-02-07] MEDS ORDERED: PROPOFOL 200 MG/20 ML VIAL IV ONE (12:00)
[2018-02-07] MEDS ORDERED: ROCURONIUM 50 MG/5 ML VIAL IV ONE (12:00)
[2018-02-07] MEDS ORDERED: KETOROLAC 60 MG/2 ML VIAL IM ONE (12:00)
[2018-02-07] MEDS ORDERED: LEVOFLOXACIN 500 MG/D5W PREMIX 100 ML IV ONE ×2 (12:11→14:05)
[2018-02-07] MEDS ORDERED: NACL 0.9% 1,000 ML IV SCH (12:44)
[2018-02-07] MEDS ORDERED: HYDROmorphone 1 MG/ML AMP IVP PRN (12:45)
[2018-02-07] MEDS ORDERED: diphenhydrAMINE 50 MG/ML VIAL IVP PRN (12:45)
[2018-02-07] MEDS ORDERED: ONDANSETRON 4 MG/2 ML VIAL IVP PRN (12:45)
[2018-02-07] MEDS ORDERED: MEPERIDINE 25 MG/ML SYR IVP PRN (12:45)
[2018-02-07] MEDS ORDERED: MORPHINE SULFATE 2 MG/ML SYR IVP PRN (14:05)
[2018-02-07] MEDS ORDERED: ACETAMINOPHEN 325 MG TAB PO PRN (14:05)
[2018-02-07] MEDS ORDERED: MORPHINE SULFATE 4 MG/ML SYR IV PRN (14:05)
--- NOTE | 2018-02-07 15:05 | NUR ---
PT INTUBATED BY ANESTHESIOLOGIST WITH 7.5 ETT SECURED @25 TEETH/GUMS. PT PLACED ON VENT WITH SETTINGS PROVIDED BY PHYSICIAN. ETT PLACEMENT CONFIRMED WITH CO2 DETECTOR AND BILATERAL BREATH SOUNDS. STAT CXR ORDERED. ZAID HARMAN BEDSIDE FOR INTUBATION. VENT IS PLUGGED INTO A RED OUTLET WITH ALARMS ON AND FUNCTIONING. AMBU BAG IS PRESENT AT BEDSIDE. WILL CONTINUE TO MONITOR.
[2018-02-07] MEDS ORDERED: LABETALOL 100 MG/20 ML VIAL IV ONE (15:55)
--- NOTE | 2018-02-07 16:45 | NUR ---
RECEIVED PATIENT FOR CONTINUITY OF CARE FROM CHILDREN'S TUTOR NURSERY. PATIENT IS AAOX4, ABLE TO MAKE NEEDS KNOWN AND FOLLOW SIMPLE COMMANDS. PATIENT WAS INTUBATED IN SURGERY PER RN. HE HAS EET TO VENT, SETTING IS FIO2 40%, TV 500, AC 12, PEEP 5. PATIENT SKIN INTACT, HAS PERIPHERAL IV TO LEFT HAND, HOWEVER IT WAS PULLED OUT DURING TRANSFER FROM RECOVERY ROOM. ST ON MONITOR AT THIS TIME. CALL LIGHT WITHIN REACH, WILL CONTINUE TO MONITOR CLOSELY.
--- NOTE | 2018-02-07 16:52 | NUR ---
PT TRANSPORTED FROM OR TO ICU. MANUALLY VENTILATED WITHOUT INCIDENT AND PLACED ON VENT. PT AGITATED AT THIS TIME. ETT REMAINS SECURE WITH A PATENT AIRWAY. VENT ALARMS REMAIN ON AND FUNCTIONING.
--- NOTE | 2018-02-07 17:00 | NUR ---
REVIEWED CXR ETT 0.5 CM ABOVE ZEN. PULLED ETT BACK FROM 25 CM TO 22 CM. WILL REPEAT CXR FOR CORRECT ETT PLACEMENT. NURSE AWARE. VT ARE ADEQUATE WITH BILATERAL BREATH SOUNDS.
[2018-02-07] MEDS ORDERED: PROPOFOL 1000 MG/100 ML PREMIX 100 ML IV PRN (17:10)
[2018-02-07] MEDS ORDERED: LORazepam 2 MG/ML VIAL IM/IVP SCH (17:14)
[2018-02-07] MEDS ORDERED: NACL 0.9% 1,000 ML IV ONE (19:00)
--- NOTE | 2018-02-07 19:16 | NUR ---
ENDORSED BEDSIDE REPORT TO KENNEL ASSISTANT RN FOR CONTINUITY OF CARE, PATIENT IS IN NO DISTRESS AT THIS TIME.
--- NOTE | 2018-02-07 19:42 | NUR ---
RECEIVED PT ON VENT SUPPORT AT DOCUMENTED SETTINGS, OBTAINED SPUTUM SAMPLE FOR LAB, SUCTIONED SCANT AMOUNT OF CLEAR YELLOW THIN SECRETIONS, NO RESP DISTRESS OR SOB NOTED AT THIS TIME, PT RESPONSIVE AND COOPERATIVE, 7.5 ETT SECURED AT 22 CM AT THE TEETH/GUM, ALARMS SET AND AUDIBLE, AMBU BAG AT BEDSIDE, VENT PLUGGED INTO RED OUTLET, PULSE OX ON, WILL CONT TO MONITOR.
--- NOTE | 2018-02-07 20:10 | NUR ---
AT BEDSIDE TO CHECK THE PT. WILL FOLLOW THE ORDER.
[2018-02-07] MEDS: LISINOPRIL 20 MG TAB PO SCH (21:00)
[2018-02-07] MEDS: TEMAZEPAM 15 MG CAP PO SCH (21:00)
--- NOTE | 2018-02-07 21:00 | NUR ---
HOLD SCHEDULED PO MEDICATIONS LOPRESSOR, LISINOPRIL AND TEMAZEPAM AT THIS TIME BECAUSE PT IS INTUBATED. NOTIFIED TO DR. CULP.
--- NOTE | 2018-02-07 21:10 | NUR ---
ORDER TO EXTUBATE PER DR JUARES, PT EXTUBATED SUCCESSFULLY WITH NO INCIDENT, PT PLACED ON 2LPM NC, TOLERATING WELL O2 SAT 100%, WILL CONT TO MONITOR.
--- NOTE | 2018-02-07 21:20 | NUR ---
AND AT BEDSIDE TO CHECK THE PT . DR. JUARES EXTUBATED PT [id number]. NO ACUTE RESPIRATORY DISTRESS NOTED. PT TOLERATED WELL. CAME TO SEE THE PT AT 2109. WILL FOLLOW THE ORDER. PT IS AAO X4, ABLE TO TALK, ABLE TO MAKE NEEDS KNOWN. SINUS SABRINA TO SR ON THE TOOL AND DIE REPAIR. WILL CONTINUE TO MONITOR.
[2018-02-07 21:32] LABS: HEMATOCRIT 48.2 % (36-52); HEMOGLOBIN 15.7 g/dL (12.0-18.0); MEAN CORPUSCULAR HEMOGLOBIN 28 pg (27-31); MEAN CORPUSCULAR HGB CONC 33 g/dL (33-37); MEAN CORPUSCULAR VOLUME 87.3 fL (80-94); PLATELET COUNT (AUTO) 249 K/uL (140-450); RED BLOOD CELL COUNT(AUTO) 5.52 MIL/uL (4.20-6.10); WHITE BLOOD COUNT (AUTO) 13.8 K/uL (4.8-10.8)
[2018-02-07 21:44] LABS: ANION GAP 13.5 (8-16); CARBON DIOXIDE 29.2 mmol/L (21-32); CREATININE 1.7 mg/dL (0.7-1.3); POTASSIUM 4.7 mmol/L (3.5-5.1)
[2018-02-07 21:59] LABS: LYMPHOCYTES % (MANUAL) 1 % (20-46); MONOCYTES % (MANUAL) 6 % (5-12)
--- NOTE | 2018-02-07 23:15 | NUR ---
PT IS IN ASLEEP, AROUSABLE TO VOICE. AAO X4, VERBALLY RESPONSIVE. SB ON THE MONITOR. NO ACUTE DISTRESS NOTED. DENIES PAIN. BP 128/70 AT THIS TIME. CALL LIGHT WITHIN REACH. WILL CONTINUE TO MONITOR.
[2018-02-08] VITALS (12 sets, daily range): BP systolic 119–166; BP diastolic 61–102
--- NOTE | 2018-02-08 01:00 | NUR ---
PT IS AWAKE AT THIS TIME. AAO X4, ABLE TO MAKE NEEDS KNOWN. NO ACUTE DISTRESS NOTED. O2 SAT 100% AT O2 2L/M VIA NC. SB TO SR ON THE MONITOR. BP 141/82 NOTED. HOB ELEVATED 30 DEGREE, CALL LIGHT WITHIN REACH. WILL CONTINUE TO MONITOR.
--- NOTE | 2018-02-08 02:40 | NUR ---
PT IS IN ASLEEP, AROUSABLE TO VOICE. NO ACUTE RESPIRATORY DISTRESS NOTED. 100% O2 SAT WITH O2 2L/M VIA NC. BP 111/60 NOTED. SR TO SB ON THE MONITOR. WILL CONTINUE TO MONITOR.
[2018-02-08] MEDS: NACL 0.9% 1,000 ML IV SCH ×3 (03:33→16:54)
[2018-02-08] MEDS: HYDROcodone/APAP 5/325 MG 1 TAB TAB PO PRN ×4 (03:39→22:33)
--- NOTE | 2018-02-08 03:50 | NUR ---
PT COMPLAINT ABOUT ABDOMINAL SHARP PAIN 03/27, ADMINISTERED PRN PO PAIN MEDICATION ORDERED. TOLERATED WELL. NO ACUTE RESPIRATORY DISTRESS NOTE. SR TO SB ON THE MONITOR. BP 167/87 NOTED. WILL CONTINUE TO MONITOR.
--- NOTE | 2018-02-08 05:00 | NUR ---
PT IS IN ASLEEP. NO ACUTE DISTRESS NOTED. DENIES PAIN. CALL LIGHT WITHIN REACH. WILL CONTINUE TO MONITOR.
--- NOTE | 2018-02-08 05:35 | NUR ---
PT COMPLAINT SHARP ABDOMINAL PAIN /10, ADMINISTERED PRN PAIN MEDICATION ORDERED.NO ACUTE RESPIRATORY DISTRESS NOTED. BP IS 171/94 LIKELY DUE TO PAIN. SR ON THE MONITOR. WILL CONTINUE TO MONITOR.
[2018-02-08 05:38] LABS: BASOPHILS % (AUTO) 0.1 % (0.0-2.0); HEMATOCRIT 43.7 % (36-52); HEMOGLOBIN 14.1 g/dL (12.0-18.0); LYMPHOCYTES # (AUTO) 1.1 K/uL (2.0-11.5); MEAN CORPUSCULAR HEMOGLOBIN 28 pg (27-31); MEAN CORPUSCULAR HGB CONC 32 g/dL (33-37); MEAN CORPUSCULAR VOLUME 87.1 fL (80-94); MONOCYTES # (AUTO) 1.1 K/uL (0.8-1.0); MONOCYTES % (AUTO) 8.9 % (1.7-9.3); NEUTROPHILS # (AUTO) 10.3 K/uL (1.8-7.7); PLATELET COUNT (AUTO) 234 K/uL (140-450); RED BLOOD CELL COUNT(AUTO) 5.02 MIL/uL (4.20-6.10); RED CELL DISTRIBUTION WIDTH 14.2 % (11.6-13.7); WHITE BLOOD COUNT (AUTO) 12.6 K/uL (4.8-10.8)
[2018-02-08 06:22] LABS: ANION GAP 9.6 (8-16); CARBON DIOXIDE 29.4 mmol/L (21-32); CREATININE 1.5 mg/dL (0.7-1.3)
--- NOTE | 2018-02-08 06:30 | NUR ---
PT HAD CT OF HEAD WITH OUT CONTRAST, TOLERATED WELL. NO ACUTE DISTRESS NOTE.
--- NOTE | 2018-02-08 07:30 | NUR ---
REPORT GIVEN TO IGNACIO FOR CONTINUITY OF CARE.
--- NOTE | 2018-02-08 07:30 | NUR ---
REPORT RECEIVED FROM NOC SHIFT RN. SR ON MONITOR. PT RESTING IN BED, AWAKE, ALERT AND ORIENTED X4, VERBALIZES NEEDS. PUPILS REACTIVE TO LIGHT. SKIN DRY AND WARM TO TOUCH, AFEBRILE. LUNGS SOUND DIMINISHED ON AUSCULTATION. PERIPHERAL LINES NOTED ON RIGHT WRIST 22G, LEFT FOREARM 20G AND RIGHT FOREARM 22G. IV SITE INTACT. NS RUNNING AT 150 ML/HR. ABDOMEN SOFT ROUND AND TENDERNESS PRESENT. S/P SURGICAL DRESSING X4 NOTED ON ABDOMINAL AREA. NO DRAINAGE NOTED, INTACT DRESSING. ACTIVE BOWEL SOUND. SKIN INTACT. KEPT PT ON COMFORTABLE POSITION. HOB ELEVATED. BED IN LOW POSITION LOCKED. CALL LIGHT WITHIN REACH. WILL CONTINUE TO MONITOR.
[2018-02-08] MEDS ORDERED: NACL 0.9% 1,000 ML IV SCH (07:31)
[2018-02-08] MEDS ORDERED: CALCIUM GLUCONATE 10% 1000 MG/10 ML VIAL IVP ONE (07:35)
[2018-02-08] MEDS ORDERED: MAG SULF 2000 MG/WATER PREMIX 50 ML IV SCH (07:45)
[2018-02-08] MEDS: PANTOPRAZOLE 40 MG INJ VIAL IVP SCH (08:39)
[2018-02-08] MEDS: ATORVASTATIN 20 MG TAB PO SCH (08:39)
[2018-02-08] MEDS: SENNA 8.6 MG TAB PO SCH (08:40)
[2018-02-08] MEDS: HYDROCHLOROTHIAZIDE 25 MG TAB PO SCH ×2 (08:40→16:40)
[2018-02-08] MEDS: METOPROLOL 50 MG TAB PO SCH ×2 (08:40→21:00)
[2018-02-08] MEDS: ACETAMINOPHEN 325 MG TAB PO PRN (10:33)
--- NOTE | 2018-02-08 10:35 | NUR ---
PT COMPLAIN OF HEADACHE. TYLENOL ADMINISTERED PER ORDERED. PT IS ON CONTINUOUS MONITORING FOR C/O DIZZINESS AND HEADACHE.
--- NOTE | 2018-02-08 10:40 | NUR ---
CALLED DR. MUNIZ NOTIFIED ABOUT PT C/O DIZZINESS AND FLUCTUATING BP 166/86 TO BP 150/85 HR 50 RR 21 SPO2 98% T 98.0 DEGREE F. WILL CONTINUE TO MONITOR.
[2018-02-08] MEDS ORDERED: CALCIUM GLUCONATE 10% 1,000 MG in NACL 0.9% 50 ML IV SCH (11:00)
[2018-02-08] MEDS: HYDROmorphone PFS 2 MG/ML SYR IVP PRN (11:51)
[2018-02-08] MEDS ORDERED: LORazepam 1 MG TAB PO SCH (12:10)
--- NOTE | 2018-02-08 12:20 | NUR ---
PT SAID HE IS HOMELESS. HE SAID HE IS WORRIED ABOUT WHERE IS SUPPOSED TO GO AFTER DISCHARGE. NOTIFIED CHARGE NURSE AND DR. MUNIZ, SAID WILL HAVE SOCIAL SERVICE TO MEET PT. WILL FOLLOW UP ON ORDER. REASSURED PT ABOUT SOCIAL SERVICE FOR PLACEMENT. ADMINISTERED ATIVAN 1 MG PO PER ORDER.
--- NOTE | 2018-02-08 12:23 | NUR ---
PT EATING LUNCH AT THIS TIME.
[2018-02-08] MEDS: ONDANSETRON 4 MG/2 ML VIAL IV PRN ×2 (12:28→16:39)
--- NOTE | 2018-02-08 12:28 | NUR ---
PT THREW UP. ZOFRAN ADMINISTERED PER ORDER.
--- NOTE | 2018-02-08 13:42 | NUR ---
PT SEEN BY DR. JUARES. UPDATED PT CONDITION AND VOMITING STATUS.
--- NOTE | 2018-02-08 14:25 | NUR ---
CALLED DR. MUNIZ AND NOTIFIED ABOUT VOMITING AND INCREASED BP 157/88 SAID WILL COME TO SEE PT.
--- NOTE | 2018-02-08 14:28 | NUR ---
PAGED DR. CAT TO NOTIFY PT HAVING VOMITING AND INCREASED BP. WAITING FOR CALL BACK.
[2018-02-08 14:51] LABS: ALBUMIN 3.2 g/dL (3.4-5.0); ANION GAP 11.9 (8-16); CARBON DIOXIDE 29.8 mmol/L (21-32); CREATININE 1.5 mg/dL (0.7-1.3); POTASSIUM 3.7 mmol/L (3.5-5.1); TOTAL BILIRUBIN 0.5 mg/dL (0.0-1.0)
--- NOTE | 2018-02-08 14:57 | NUR ---
BP 170/101. PAGED DR. MUNIZ. WAITING FOR CALL BACK. PT ON CONTINUOUS MONITORING.
--- NOTE | 2018-02-08 15:05 | NUR ---
PT C/O CHEST PAIN. NITROSTAT ADMINISTERED PER ORDERED. CALLED DR. MUNIZ UNABLE TO SPOKE. LEFT MESSAGE TO DR. LARKIN ABOUT PT C/O CHEST PAIN AND REQUESTED TO NOTIFY DR. MUNIZ.
[2018-02-08] MEDS ORDERED: LORazepam 0.5 MG TAB PO SCH ×2 (15:19→17:34)
--- NOTE | 2018-02-08 15:21 | NUR ---
BP 166/97.
--- NOTE | 2018-02-08 15:23 | NUR ---
BP DECREASED TO 134/88. PT RESTING IN BED COMFORTABLY. NO CHANGE IN CONDITION. WILL CONTINUWE TO MONITOR.
--- NOTE | 2018-02-08 15:25 | NUR ---
DR. CAT RETURN CALL. ORDER TO KEEP PT. NPO EXCEPT MEDICATION.
--- NOTE | 2018-02-08 17:02 | NUR ---
FAMILY AT BEDSIDE.
--- NOTE | 2018-02-08 17:28 | NUR ---
BP RAISED UPTO 182/109. DR. MUNIZ MADE AWARE. WILL FOLLOW UP ON ORDER.
--- NOTE | 2018-02-08 18:07 | NUR ---
PT SEEN BY DR. MUNIZ.
--- NOTE | 2018-02-08 19:15 | NUR ---
ENDORSED TO NOC SHIFT RN FOR CONTINUITY OF CARE. PT ON STABLE CONDITION.
--- NOTE | 2018-02-08 19:20 | NUR ---
RECEIVED BEDSIDE REPORT FROM IGNACIO. PT IS AWAKE, AAO X4, VERBALLY RESPONSIVE. BILATERAL LUNG SOUND CLEAR. O2 SAT 98% ON O2 2L/M VIA NC. NO FEVER NOTED. PERIPHERAL IV LINE TO RIGHT FORE ARM 22G, RIGHT WRIST 22G, LEFT FOREARM 20G NOTED. LINES ARE INTACT AND PATENT. NO SIGNS OF INFECTION. ACTIVE BOWEL SOUND FROM ALL 4QUADS. SKIN IS WARM TO TOUCH AND INTACT. NO ACUTE DISTRESS NOTED. PT'S BP 154/97, HR 58 NOTED. PT DENIES PAIN OR DISCOMFORT AT THIS TIME. HOB ELEVATED 30 DEGREE. BED IS LOW IN POSITION. CALL LIGHT WITHIN REACH. WILL CONTINUE TO MONITOR.
[2018-02-08] MEDS: LISINOPRIL 20 MG TAB PO SCH (20:25)
[2018-02-08] MEDS: TEMAZEPAM 15 MG CAP PO SCH (20:25)
--- NOTE | 2018-02-08 20:28 | NUR ---
ADMINISTERED SCHEDULED MEDICATION, TEMAZEPAM AND LISINOPRIL. PT'S BP 186/100, HR 59 NOTED. PT DENIES PAIN AT THIS TIME. NO ACUTE DISTRESS NOTED. CALL LIGHT WITHIN REACH. WILL CONTINUE TO MONITOR.
--- NOTE | 2018-02-08 21:20 | NUR ---
HOLD METOPROLOL DUE TO HR 59 AT THIS TIME. PT IS IN ASLEEP, AROUSABLE TO VOICE. DENIES PAIN. NO ACUTE DISTRESS NOTED. WILL CONTINUE TO MONITOR.
--- NOTE | 2018-02-08 22:36 | NUR ---
PT COMPLAINT OF ABDOMINAL SHARP PAIN 03/27. ADMINISTERED PRN NORCO, TOLERATED WELL. NO ACUTE RESPIRATORY DISTRESS NOTED. WILL CONTINUE TO MONITOR.
--- NOTE | 2018-02-08 23:24 | NUR ---
PT'S BP 165/101, HR 59 NOTED. NOTIFIED TO AND TRYING TO GET PRN HYPERTENSIVE MEDICATION. DR. CULP STATED PT IN HIGH RISK FOR HYPOTENSION, MONITOR BP AND PT'S STATUS. WILL CONTINUE TO MONITOR.
[2018-02-09] VITALS (11 sets, daily range): BP systolic 143–206; BP diastolic 85–133
--- NOTE | 2018-02-09 00:30 | NUR ---
PT IS IN ASLEEP AT THIS TIME, AROUSABLE TO VOICE. HR 60, BP 136/104 NOTED. PT DENIES PAIN OR DISCOMFORT AT THIS TIME. O2 SAT 98% ON O2 2L/M VIA NC. NO ACUTE DISTRESS NOTED. NO ALOC. CALL LIGHT WITHIN REACH. WILL CONTINUE TO MONITOR.
[2018-02-09] MEDS: HYDROcodone/APAP 5/325 MG 1 TAB TAB PO PRN ×5 (02:26→23:40)
--- NOTE | 2018-02-09 02:27 | NUR ---
PT COMPLAINED ABDOMINAL SHARP, PRESSURE PAIN, ADMINISTERED PRN PAIN MEDICATION ORDERED, TOLERATED WELL. NO ACUTE RESPIRATORY DISTRESS NOTED. SR ON THE MONITOR. WILL CONTINUE TO MONITOR.
[2018-02-09] MEDS: HYDROmorphone PFS 2 MG/ML SYR IVP PRN (04:40)
--- NOTE | 2018-02-09 04:40 | NUR ---
PT IS AWAKE, AAO X4. PT COMPLAINED SHARP, PRESSURE, CONTINUOS ABDOMINAL PAIN 7/10. ADMINISTERED PRN PAIN MEDICATION ORDERED, TOLERATED WELL. WILL CONTINUE TO MONITOR.
[2018-02-09 05:16] LABS: BASOPHILS % (AUTO) 0.4 % (0.0-2.0); EOSINOPHILS % (AUTO) 0.4 % (0.0-4.0); HEMATOCRIT 43.5 % (36-52); HEMOGLOBIN 14.3 g/dL (12.0-18.0); LYMPHOCYTES # (AUTO) 1.8 K/uL (2.0-11.5); LYMPHOCYTES % (AUTO) 20.1 % (20.5-51.1); MEAN CORPUSCULAR HEMOGLOBIN 29 pg (27-31); MEAN CORPUSCULAR HGB CONC 33 g/dL (33-37); MEAN CORPUSCULAR VOLUME 86.6 fL (80-94); MONOCYTES # (AUTO) 0.8 K/uL (0.8-1.0); MONOCYTES % (AUTO) 8.6 % (1.7-9.3); NEUTROPHILS # (AUTO) 6.2 K/uL (1.8-7.7); NEUTROPHILS % (AUTO) 70.5 % (42.2-75.2); PLATELET COUNT (AUTO) 215 K/uL (140-450); RED BLOOD CELL COUNT(AUTO) 5.02 MIL/uL (4.20-6.10); RED CELL DISTRIBUTION WIDTH 14.4 % (11.6-13.7); WHITE BLOOD COUNT (AUTO) 8.9 K/uL (4.8-10.8)
--- NOTE | 2018-02-09 06:00 | NUR ---
PT IS IN ASLEEP, AROUSABLE TO VOICE. NO ACUTE DISTRESS NOTED. BP156/86, HR 59 NOTED. DENIES PAIN. WILL CONTINUE TO MONITOR.
[2018-02-09 06:01] LABS: ANION GAP 8.7 (8-16); CARBON DIOXIDE 28.9 mmol/L (21-32); CREATININE 1.2 mg/dL (0.7-1.3); POTASSIUM 3.6 mmol/L (3.5-5.1)
--- NOTE | 2018-02-09 06:40 | NUR ---
AT BEDSIDE TO CHECK THE PT, WILL FOLLOW ORDER
[2018-02-09] MEDS: NACL 0.9% 1,000 ML IV SCH ×2 (06:59→15:58)
--- NOTE | 2018-02-09 07:20 | NUR ---
GIVEN BEDSIDE REPORT TO IGNACIO.
--- NOTE | 2018-02-09 07:25 | NUR ---
RECEIVED REPORT FROM NOC SHIFT RN. PT RESTING IN BED. PT A/O X4, VERBALIZES NEEDS. SR ON MONITOR WITH HIGH BP. PUPILS REACTIVE TO LIGHT. SKIN DRY AND WARM TO TOUCH. LUNGS SOUND DIMINISHED ON AUSCULTATION. PERIPHERAL LINES NOTED ON LEFT FOREARM AND RIGHT FOREARM, INTACT. NS RUNNING AT 60 ML/HR. ABDOMEN SOFT ROUND AND TENDERNESS PRESENT. S/P SURGICAL DRESSING NOTED. DRESSING INTACT, NO DRAINAGE NOTED. ACTIVE BOWEL SOUND ON AUSCULTATION. SCDS ON. KEPT HOB ELEVATED. CALL LIGHT WITHIN REACH AND BED IN LOW POSITION, LOCKED. WILL CONTINUE TO MONITOR.
[2018-02-09] MEDS: METOPROLOL 50 MG TAB PO SCH (08:20)
[2018-02-09] MEDS: SENNA 8.6 MG TAB PO SCH (08:22)
[2018-02-09] MEDS: HYDROCHLOROTHIAZIDE 25 MG TAB PO SCH ×2 (08:23→16:44)
[2018-02-09] MEDS: ATORVASTATIN 20 MG TAB PO SCH (08:25)
[2018-02-09] MEDS: PANTOPRAZOLE 40 MG INJ VIAL IVP SCH (08:29)
--- NOTE | 2018-02-09 08:31 | NUR ---
PT SEEN BY DR. RICE AND [facility]. UPDATED PT CONDITION. NOTIFY ABOUT LOW MG AND HIGH BP 209/101. WILL FOLLOW UP ON ORDER.
[2018-02-09] MEDS: ONDANSETRON 4 MG/2 ML VIAL IV PRN (08:53)
[2018-02-09] MEDS ORDERED: LISINOPRIL 10 MG TAB PO SCH ×2 (09:00→11:00)
[2018-02-09] MEDS: ESCITALOPRAM 20 MG TAB PO SCH (09:59)
[2018-02-09] MEDS: MAG SULF 2000 MG/WATER PREMIX 100 ML IV SCH (10:00)
--- NOTE | 2018-02-09 10:08 | NUR ---
ADMINISTERED MEDICATION PER ORDERED. TOLERATING WELL.
[2018-02-09] MEDS ORDERED: ISOSORBIDE DINITRATE 20 MG TAB PO SCH ×2 (10:15→10:30)
--- NOTE | 2018-02-09 10:42 | NUR ---
DR. MUNIZ MADE AWARE ABOUT HIGH BP 169/101 AND HR 49. ORDERED TO HOLD ISOSORBIDE FOR NOW. WILL FOLLOW UP ON ORDER.
[2018-02-09] MEDS ORDERED: LISINOPRIL 20 MG TAB PO ONE (10:45)
--- NOTE | 2018-02-09 10:48 | NUR ---
ULTRASOUND AT BEDSIDE FOR US RENAL.
--- NOTE | 2018-02-09 10:54 | NUR ---
PT WAS NAUSEATED UNABLE TO DO US KIDNEY AT THIS TIME.
--- NOTE | 2018-02-09 10:55 | NUR ---
NOTIFIED DR. MUNIZ ABOUT PT C/O NAUSEA. WILLFOLLOW UP ON ORDER.
[2018-02-09] MEDS ORDERED: PROMETHAZINE 25 MG/ML VIAL IVP SCH (11:00)
[2018-02-09] MEDS ORDERED: PROMETHAZINE 25 MG/ML VIAL IM SCH (11:03)
--- NOTE | 2018-02-09 11:25 | NUR ---
PT DENIES NAUSEA AT THIS TIME.
--- NOTE | 2018-02-09 11:36 | NUR ---
PT SEEN BY DR. CAT. UPDATED PT CONDITION, HIGH BP 158/107 AND C/O NAUSEA. WILL FOLLOW UP ON ORDER.
--- NOTE | 2018-02-09 11:43 | NUR ---
ULTRASOUND AT BEDSIDE FOR US KIDNEY.
--- NOTE | 2018-02-09 12:12 | NUR ---
PT C/O CHEST HEAVINESS. PAGED DR. MUNIZ.
[2018-02-09] MEDS ORDERED: LISINOPRIL 20 MG TAB PO SCH ×3 (12:46→21:00)
[2018-02-09] MEDS ORDERED: LORazepam 0.5 MG TAB PO SCH (12:50)
--- NOTE | 2018-02-09 13:06 | NUR ---
DR. MUNIZ AT BEDSIDE EXPLAINING PT ABOUT HIS CONDITION.
[2018-02-09] MEDS: POLYVINYL ALCOHOL 1.4% OP 15 ML SOL OP SCH ×2 (13:10→16:22)
--- NOTE | 2018-02-09 14:11 | NUR ---
PT SLEEPING IN BED COMFORTABLY AT THIS TIME. NO CHANGE IN LOC. WILL CONTINUE TO MONITOR.
--- NOTE | 2018-02-09 15:07 | NUR ---
PT HAS STEADY GAIT.
--- NOTE | 2018-02-09 15:07 | NUR ---
REHAB AT BEDSIDE FOR PT EVALUATION.
[2018-02-09] MEDS ORDERED: ENALAPRILAT 2.5 MG/2 ML VIAL IVP PRN (15:20)
--- NOTE | 2018-02-09 16:12 | NUR ---
02/09/18 RD FOLLOW UP COMPLETED PLEASE REFER TO NUTRITION ASSESSMENT UNDER CARE ACTIVITY FOR ESTIMATED NUTRITIONAL NEEDS. 1. CONTINUE CLEAR LIQUID DIET TOLERATED 2. WHEN/IF MEDICALLY STABLE TO BEGIN NUTRITION, CONSIDER ADVANCED DIET TOLERATED TO CARDIAC DIET. 3. RD TO FOLLOW-UP 3-5 DAYS, MODERATE RISK SHAWN ACOSTA RD
[2018-02-09] MEDS ORDERED: NITROGLYCERIN 2.5 MG PO SCH (17:50)
[2018-02-09] MEDS ORDERED: LORazepam 1 MG TAB PO PRN (17:55)
--- NOTE | 2018-02-09 18:01 | NUR ---
PT RESTING IN BED COMFORTABLY. NO ACUTE RESPIRATORY DISTRESS NOTED, BP 184/ 106. DR. MUNIZ AWARE.
--- NOTE | 2018-02-09 18:14 | NUR ---
PT C/O BLURRY VISION NOTIFIED DR. MUNIZ.
--- NOTE | 2018-02-09 19:25 | NUR ---
ENDORSED TO NOC SHIFT RN FOR CONTINUITY OF CARE. PT ON STABLE CONDITION.
--- NOTE | 2018-02-09 19:30 | NUR ---
ASSUMED CARE OF PT.INITIAL ASSESSMENT COMPLETED.SR ON MONITOR.PT ALERT AND ORIENTED X4.TOLERATING ROOM AIR.NO SOB NOTED.MAINTAINED ON CLEAR LIQUID DIET.W/PERIPHERAL IV TO RT F/A G20 INTACT INFUSING ORDERED IVF AND SALINE LOCK TO LT F/A G20.PT DENIES N/V.C/O PAIN ON ABDOMEN 03/27.WILL GIVE PAIN MEDICATION ORDERED.PT ABLE TO STEWART.CALL LIGHT WITHIN REACH
--- NOTE | 2018-02-09 19:34 | NUR ---
NORCO GIVEN ORDERED.WILL CONTINUE TO MONITOR PT.
[2018-02-09] MEDS: TEMAZEPAM 15 MG CAP PO SCH (20:43)
[2018-02-09] MEDS: LISINOPRIL 20 MG TAB PO SCH (20:44)
[2018-02-09] MEDS ORDERED: ISOSORBIDE DINITRATE 10 MG TAB PO SCH (21:00)
--- NOTE | 2018-02-09 21:00 | NUR ---
PT ASLEEP;NO S/SX OF PAIN NOTED.BP REMAINS ELEVATED,MEDS GIVEN ORDERED.
[2018-02-10] VITALS (8 sets, daily range): BP systolic 150–184; BP diastolic 77–140
--- NOTE | 2018-02-10 | NUR ---
PT ASLEEP;NO SOB NOTED. DENIES PAIN.
--- NOTE | 2018-02-10 02:12 | NUR ---
pt appears anxious/restless; ativan given as ordered
--- NOTE | 2018-02-10 04:00 | NUR ---
pt asleep; condition remains unchanged.rosalind to surgical sites intact.dressings came off,changed.afebrile
--- NOTE | 2018-02-10 06:18 | NUR ---
PT ASLEEP;EASILY AROUSABLE.NO DISTRESS NOTED.NO S/SX OF PAIN NOTED.NO BM THIS SHIFT.TOLERATING ROOM AIR
[2018-02-10 06:20] LABS: BASOPHILS % (AUTO) 0.5 % (0.0-2.0); EOSINOPHILS % (AUTO) 0.4 % (0.0-4.0); HEMATOCRIT 45.3 % (36-52); LYMPHOCYTES # (AUTO) 1.6 K/uL (2.0-11.5); LYMPHOCYTES % (AUTO) 18.8 % (20.5-51.1); MEAN CORPUSCULAR HEMOGLOBIN 29 pg (27-31); MEAN CORPUSCULAR HGB CONC 33 g/dL (33-37); MONOCYTES # (AUTO) 0.8 K/uL (0.8-1.0); MONOCYTES % (AUTO) 9.1 % (1.7-9.3); NEUTROPHILS # (AUTO) 5.9 K/uL (1.8-7.7); NEUTROPHILS % (AUTO) 71.2 % (42.2-75.2); PLATELET COUNT (AUTO) 227 K/uL (140-450); RED BLOOD CELL COUNT(AUTO) 5.27 MIL/uL (4.20-6.10); RED CELL DISTRIBUTION WIDTH 14.1 % (11.6-13.7); WHITE BLOOD COUNT (AUTO) 8.3 K/uL (4.8-10.8)
[2018-02-10 07:04] LABS: ANION GAP 11.6 (8-16); CARBON DIOXIDE 30.8 mmol/L (21-32); CREATININE 1.1 mg/dL (0.7-1.3); POTASSIUM 3.4 mmol/L (3.5-5.1)
--- NOTE | 2018-02-10 07:09 | NUR ---
REPORT GIVEN TO ALEC SOMMER FOR CONTINUITY OF CARE.PT IN STABLE CONDITION
--- NOTE | 2018-02-10 07:10 | NUR ---
REPORT RECEIVED FROM NOC SHIFT RN. PT RESTING IN BED. A/O X4, VERBALIZES NEED. SKIN DRY AND WARM TO TOUCH. PUPILS REACTIVE TO LIGHT. LUNGS DIMINISHED ON AUSCULTATION. PERIPHERAL LINES ON LEFT AND RIGHT FOREARM. INTACT. NS RUNNING AT 60 ML/HR. ABDOMEN SOFT, ROUND AND TENDERNESS PRESENT ON SURGICAL AREA. S/P LAP IKER DRESSING INTACT. NO DRAINAGE NOTED. HYPOACTIVE BOWEL SOUND ON AUSCULTATION. KEPT HOB ELEVATED. CALL LIGHT WITHIN REACH, BED IN LOW POSITION, LOCKED. WILL CONTINUE TO MONITOR.
[2018-02-10] MEDS: HYDROcodone/APAP 5/325 MG 1 TAB TAB PO PRN ×3 (07:36→22:57)
--- NOTE | 2018-02-10 08:30 | NUR ---
SEEN BY DR. HAIR. UPDATED RECENT LABS AND PT'S CONDITION. WILL FOLLOW UP ON ORDER. Addendum: 02/10/18 at 0832 by Rupal Calvillo RN WRONG CHARTING
[2018-02-10] MEDS: PANTOPRAZOLE 40 MG INJ VIAL IVP SCH (08:56)
[2018-02-10] MEDS: POLYVINYL ALCOHOL 1.4% OP 15 ML SOL OP SCH ×3 (08:56→16:37)
[2018-02-10] MEDS: SENNA 8.6 MG TAB PO SCH (08:58)
[2018-02-10] MEDS: HYDROCHLOROTHIAZIDE 25 MG TAB PO SCH ×2 (08:58→16:37)
[2018-02-10] MEDS: ESCITALOPRAM 20 MG TAB PO SCH (08:59)
[2018-02-10] MEDS: ATORVASTATIN 20 MG TAB PO SCH (08:59)
[2018-02-10] MEDS: ISOSORBIDE DINITRATE 10 MG TAB PO SCH ×2 (09:03→13:33)
[2018-02-10] MEDS: MAG SULF 2000 MG/WATER PREMIX 100 ML IV SCH (09:04)
[2018-02-10] MEDS: NACL 0.9% 1,000 ML IV SCH (09:17)
[2018-02-10] MEDS ORDERED: NITROGLYCERIN 0.4 MG TAB SL SCH ×2 (09:30→13:00)
[2018-02-10] MEDS ORDERED: ZOLPIDEM 5 MG TAB PO SCH (09:30)
--- NOTE | 2018-02-10 10:09 | NUR ---
ADMINISTERED NITROSTAT AND AMBIAN PER ORDERED. DR. MUNIZ AWARE. PT RESTING IN BED. NO CHANGE IN LOC. NO ACUTE RESPIRATORY DISTRESS NOTED. WILL CONTINUE TO MONITOR.
[2018-02-10] MEDS ORDERED: MAG SULF 2000 MG/WATER PREMIX 100 ML IV ONE (10:10)
--- NOTE | 2018-02-10 10:16 | NUR ---
BP DECREASED TO 124/69. SOCIAL SERVICE AT BEDSIDE TALKING AND EVALUATING PATIENT'S LIVING STATUS.
[2018-02-10] MEDS ORDERED: POTASSIUM CHLORIDE 10 MEQ TABER PO SCH (10:30)
[2018-02-10] MEDS ORDERED: LACTULOSE 20 GM/30 ML UDC PO SCH (10:30)
--- NOTE | 2018-02-10 10:40 | NUR ---
MADE AWARE ABOUT PT C/O DIZZINESS, BLURRED VISION AND NAUSEA.
[2018-02-10] MEDS: ONDANSETRON 4 MG/2 ML VIAL IV PRN (10:46)
--- NOTE | 2018-02-10 11:05 | NUR ---
DR. MUNIZ MADE AWARE ABOUT HIGH BP 217/140. SAID WILL COME TO SEE PT.
[2018-02-10] MEDS: ACETAMINOPHEN 325 MG TAB PO PRN (11:29)
--- NOTE | 2018-02-10 12:31 | NUR ---
PT DENIES NAUSEA AT THIS TIME. EATING LUNCH.
--- NOTE | 2018-02-10 12:32 | NUR ---
PT SEEN BY DR. CAT. UPDATED PT CONDITION. NOTIFIED ABOUT EPISODE OF NAUSEA AND VOMITING. WILL FOLLOW UP ON ORDER.
--- NOTE | 2018-02-10 14:38 | NUR ---
BP 183/128. Dr. Tate made aware.
--- NOTE | 2018-02-10 14:42 | NUR ---
BP DECREASED TO 172/97.
[2018-02-10] MEDS ORDERED: hydrALAZINE 20 MG/ML VIAL IVP PRN (14:55)
[2018-02-10] MEDS ORDERED: CARVEDILOL 6.25 MG TAB PO SCH (15:00)
--- NOTE | 2018-02-10 16:08 | NUR ---
PT RESTING IN BED COMFORTABLY. NO ACUTE RESPIRATORY DISTRESS NOTED. NO CHANGE IN LOC. WILL CONTINUE TO MONITOR.
--- NOTE | 2018-02-10 16:37 | NUR ---
BP 166/93. COREG PER ORDER ADMINISTERED.
--- NOTE | 2018-02-10 17:52 | NUR ---
PT EATING DINNER AT THIS TIME.
--- NOTE | 2018-02-10 19:18 | NUR ---
REPORT GIVEN TO NOC SHIFT RN FOR CONTINUITY OF CARE. PT ON STABLE CONDITION.
--- NOTE | 2018-02-10 19:30 | NUR ---
ASSUMED CARE OF PT.PT AWAKE ALERT AND ORIENTED.SR ON MONITOR.ON ROOM AIR.NO SOB NOTED.PERIPHERAL IV TO RT F/A G 20 INTACT.INFUSING ORDERED IVF.ON REGULAR DIET.DENIES N/V.SURGICAL SITES ON ABDOMEN WITH JINA DRY AND INTACT.PT ABLE TO VOID FREELY.STEWART.NO C/O PAIN MADE AT THIS TIME.SKIN INTACT.
[2018-02-10] MEDS: TEMAZEPAM 15 MG CAP PO SCH (20:26)
[2018-02-10] MEDS: LISINOPRIL 20 MG TAB PO SCH (20:26)
[2018-02-10] MEDS: CARVEDILOL 6.25 MG TAB PO SCH (20:27)
--- NOTE | 2018-02-10 21:00 | NUR ---
SNACKS GIVEN PER PTS REQUEST.TOLERATED.ALL DUE MEDS GIVEN.
[2018-02-11] VITALS: BP 143/68
--- NOTE | 2018-02-11 | NUR ---
PT ASLEEP;NO S/SX OF PAIN NOTED/TOLERATING ROOM AIR.NO SOB NOTED.REPOSITIONED
[2018-02-11] MEDS: NACL 0.9% 1,000 ML IV SCH (01:00)
--- NOTE | 2018-02-11 03:12 | NUR ---
PT ASLEEP.NO SIGNS OF DISTRESS AND PAIN NOTED.PT SELF POSITION.
[2018-02-11 04:00] VITALS: BP 126/60
--- NOTE | 2018-02-11 04:57 | NUR ---
PT C/O PAIN ON ABDOMEN ;NORCO GIVEN ORDERED. OFFERED MORNING CARE/ORAL CARE; PT REFUSED
[2018-02-11] MEDS: HYDROcodone/APAP 5/325 MG 1 TAB TAB PO PRN (04:58)
[2018-02-11 05:37] LABS: BASOPHILS # (AUTO) 0.1 K/uL (0.00-0.22); BASOPHILS % (AUTO) 0.7 % (0.0-2.0); EOSINOPHILS # (AUTO) 0.1 K/uL (0-0.4); EOSINOPHILS % (AUTO) 1.3 % (0.0-4.0); HEMATOCRIT 47.3 % (36-52); HEMOGLOBIN 15.6 g/dL (12.0-18.0); LYMPHOCYTES # (AUTO) 2.6 K/uL (2.0-11.5); LYMPHOCYTES % (AUTO) 27.6 % (20.5-51.1); MEAN CORPUSCULAR HEMOGLOBIN 28 pg (27-31); MEAN CORPUSCULAR HGB CONC 33 g/dL (33-37); MEAN CORPUSCULAR VOLUME 85.9 fL (80-94); MONOCYTES % (AUTO) 10.2 % (1.7-9.3); NEUTROPHILS # (AUTO) 5.8 K/uL (1.8-7.7); NEUTROPHILS % (AUTO) 60.2 % (42.2-75.2); PLATELET COUNT (AUTO) 255 K/uL (140-450); RED CELL DISTRIBUTION WIDTH 13.9 % (11.6-13.7); WHITE BLOOD COUNT (AUTO) 9.6 K/uL (4.8-10.8)
--- NOTE | 2018-02-11 06:29 | NUR ---
PTS CONDITION REMAINS UNCHANGED.NO SOB NOTED ON ROOM AIR.PERIPHERAL IV INTACT.ABLE TO VOID FREELY.JINA TO SURGICAL SITES DRY AND INTACT.
[2018-02-11 06:36] LABS: ANION GAP 11.4 (8-16); CARBON DIOXIDE 30.4 mmol/L (21-32); CREATININE 1.2 mg/dL (0.7-1.3); MAGNESIUM 1.6 mg/dL (1.8-2.4); PHOSPHORUS 3.6 mg/dL (2.5-4.9); POTASSIUM 3.8 mmol/L (3.5-5.1)
--- NOTE | 2018-02-11 07:15 | NUR ---
PATIENT ARRIVED TO UNIT ACCOMPANIED BY RN. RECEIVED REPORT AT BEDSIDE. PATIENT ALERT AND ORIENTED X4. VITAL SIGNS STABLE AT THIS TIME. JINA WITH BANDAGES NOTED ON PATIENT'S ABDOMEN. PATIENT DOES NOT COMPLAIN OF PAIN AT THIS TIME. PATIENT HAS NO SIGNS OF RESPIRATORY DISTRESS OR RESPIRATORY DEPRESSION. UPDATED BOARD IN PATIENT'S ROOM. PUT CALL LIGHT WITHIN REACH OF PATIENT. WILL CONTINUE TO MONITOR PATIENT.
[2018-02-11 08:00] VITALS: BP 149/78
[2018-02-11] MEDS ORDERED: POTASSIUM CHLORIDE 10 MEQ TABER PO SCH (09:00)
[2018-02-11] MEDS: SENNA 8.6 MG TAB PO SCH (09:12)
[2018-02-11] MEDS: ATORVASTATIN 20 MG TAB PO SCH (09:13)
[2018-02-11] MEDS: ESCITALOPRAM 20 MG TAB PO SCH (09:13)
[2018-02-11] MEDS: CARVEDILOL 6.25 MG TAB PO SCH (09:13)
[2018-02-11] MEDS: HYDROCHLOROTHIAZIDE 25 MG TAB PO SCH (09:13)
[2018-02-11] MEDS: PANTOPRAZOLE 40 MG INJ VIAL IVP SCH (09:14)
--- NOTE | 2018-02-11 10:00 | NUR ---
PATIENT RESTING IN BED. NO COMPLAINTS OF PAIN OR ANY RESPIRATORY DISTRESS. WILL CONTINUE TO MONITOR PATIENT.
[2018-02-11] MEDS ORDERED: ESCI20TA47 PO (10:33)
[2018-02-11] MEDS ORDERED: CARV6.252 PO (10:33)
[2018-02-11] MEDS ORDERED: ACET-9525 PO (10:33)
[2018-02-11] MEDS ORDERED: DOCU-299 PO (10:33)
[2018-02-11] MEDS ORDERED: ATOR20TA40 PO (10:33)
[2018-02-11] MEDS ORDERED: ORE25 PO (10:33)
[2018-02-11] MEDS ORDERED: LISI-420 PO (10:33)
[2018-02-11 12:00] VITALS: BP 145/77
--- NOTE | 2018-02-11 12:21 | NUR ---
PATIENT RESTING AT THIS TIME. NO DISTRESS OR RESPIRATORY DEPRESSION NOTED. WILL CONTINUE TO MONITOR PATIENT.
--- NOTE | 2018-02-11 13:33 | NUR ---
PATIENT AWAKE AT THIS TIME WATCHING TELEVISION. NO DISTRESS NOTED. WILL CONTINUE TO MONITOR
--- NOTE | 2018-02-11 15:00 | NUR ---
PATIENT ASLEEP AT THIS TIME. NO COMPLAINTS OF PAIN. WILL CONTINUE TO MONITOR
--- NOTE | 2018-02-11 15:37 | NUR ---
PHYSICAL THERAPY CO-SIGN The Physical Therapy Progress Notes documented by Clinical Research Monitor have been reviewed. I CONCUR W/METAL CASTING TRADES WORKER NOTE Reviewed/Co-Signed by: Vita Polk PT Documentation Done by: AJ LEONARDO PTA Addendum: 02/11/18 at 1537 by Vita Polk PT Amended: Links added.
--- NOTE | 2018-02-11 16:34 | NUR ---
PATIENT SIGNED ALL DISCHARGE PAPERS. PATIENT AWARE OF ALL PRESCRIPTIONS. PATIENT UNDERSTOOD ALL PAPERWORK. DISCONTINUED IV LINE WITH CATHETER STILL INTACT. TOOK OFF PATIENT'S ID BAND AND TELE MONITOR. PATIENT LEFT WITH ALL BELONGINGS AMBULATING OFF THE UNIT. PATIENT IN STABLE CONDITION.
== END 2018-02-11 16:34 | disposition home or self-care (01) | DRG 263 ==
LOC: MED 19:24 → MTU 22:39 → MIC 02-07 17:07 → MTU 02-11 07:05
PROVIDERS: ADMIT Family Medicine Sports Medicine; ATTEND Family Medicine Sports Medicine
PROC: 5A1935Z Respiratory Ventilation, Less than 24 Consecutive Hours (ICD-10-PCS; 2018-02-07)
PROC: 0BH17EZ Insertion of Endotracheal Airway into Trachea, Via Natural or Artificial Opening (ICD-10-PCS; 2018-02-07)
PROC: 0FT44ZZ Resection of Gallbladder, Percutaneous Endoscopic Approach (ICD-10-PCS; principal; 2018-02-07 11:00)
DX: K80.12 Calculus of gallbladder with acute and chronic cholecystitis without obstruction (principal); N17.0 Acute kidney failure with tubular necrosis; J96.01 Acute respiratory failure with hypoxia; K85.10 Biliary acute pancreatitis without necrosis or infection; E86.0 Dehydration; E78.5 Hyperlipidemia, unspecified; I16.0 Hypertensive urgency; F17.210 Nicotine dependence, cigarettes, uncomplicated; I10 Essential (primary) hypertension; N28.9 Disorder of kidney and ureter, unspecified; F41.9 Anxiety disorder, unspecified; E87.6 Hypokalemia; F43.9 Reaction to severe stress, unspecified; D72.829 Elevated white blood cell count, unspecified; F15.23 Other stimulant dependence with withdrawal; G47.00 Insomnia, unspecified; F14.90 Cocaine use, unspecified, uncomplicated; R00.1 Bradycardia, unspecified; T44.7X5A Adverse effect of beta-adrenoreceptor antagonists, initial encounter; J45.909 Unspecified asthma, uncomplicated; K85.90 Acute pancreatitis without necrosis or infection, unspecified; Z59.0 Homelessness; Z79.82 Long term (current) use of aspirin; Z88.0 Allergy status to penicillin; Z79.899 Other long term (current) drug therapy; Z56.0 Unemployment, unspecified; Y92.89 Other specified places as the place of occurrence of the external cause; Z91.14 Patient's other noncompliance with medication regimen; K57.92 Diverticulitis of intestine, part unspecified, without perforation or abscess without bleeding
CPT/HCPCS: 36415; 70450; 71045; 74018; 76705; 80048; 80053; 80305; 81001; 82140; 82150; 82374; 82948; 83036; 83690; 83735; 83880; 84100; 84436; 84439; 84443; 84479; 84484; 85025; 85610; 85730; 86886; 86900; 86901; 87081; 88304; 89220; 93005; 93976; 94002; 96374; 96375; 97110; 97116; 97140; 97530; 99285; C9113; G0482; J0330; J0360; J0610; J1170; J1885; J1956; J2060; J2175; J2250; J2270; J2405; J2704; J3010; J3475; J3490; J7030; Q0092

== ENCOUNTER 2018-02-12 22:26 | Emergency (ER) | payer MEDICAID ==
[~2018-02-12] VITALS: Ht 180.3 cm; Wt 85.7 kg
[~2018-02-12 22:26] MED LIST changes: +ACET-9525 PO; +ATOR20TA40 PO; +CARV6.252 PO; +DOCU-299 PO; +ESCI20TA47 PO; +LISI-420 PO
[2018-02-12 22:35] VITALS: BP 152/102
--- NOTE | 2018-02-12 23:00 | NUR ---
PATIENT TO ER CHAIR [place]
--- NOTE | 2018-02-12 23:10 | NUR ---
52Y M BIB SELF C/O DIFFICULTY SWALLOWING X 1 DAY. PT STATES HE IS CONCERNED THAT HE MAY BE ALLERGIC TO THE MEDICATIONS HE WAS SENT HOME WITH, THOUGH PRESENTS HIMSELF TO THE ER WITH PRESCRIPTIONS MEDICATIONS THAT ARE A) STAPLED IN A PAPERBAG WITH NO EVIDENCE OF OPENING, TEAR, OR TAMPERING AND B) NO ABX THAT WERE GIVEN OF KNOWN ALLERGY TO PCN. PT STATES HE ALSO JUST PICKED UP HIS MEDICATION 2 HOURS AGO. PT DID HOWEVER STATE HE DOES USE RECREATIONAL DRUGS SUCH MARIJUANA AND SMOKED METHAMPHETAMINE 8 HOURS AGO AND YESTERDAY. PT APPEARS TO BE HYPERVIGILANT OF SURROUNDING AND QUITE PARANOID, BUT OTHERWISE APPROPRIATE TO ER STAFF. PT AMBULATED TO OF CHAIR A WITH STEADY GAIT, BREATH SOUNDS ARE EVEN AND UNLABORED. VSS, ER MD DR WELLINGTON MADE AWARE.
--- NOTE | 2018-02-12 23:30 | NUR ---
Patient being evaluated by physician at bedside.
--- NOTE | 2018-02-12 23:39 | NUR ---
Patient discharged with v/s stable AND DC BY DR WELLINGTON. Written and verbal after care instructions given and explained BY DR WELLINGTON. Patient verbalized understanding. Ambulatory with steady gait. All questions addressed prior to discharge BY DR WELLINGTON. Advised to follow up with PMD.
[2018-02-12 23:40] VITALS: BP 141/99
== END 2018-02-12 23:40 | disposition home or self-care (01) ==
LOC: MED 22:26
DX: T88.59XA Other complications of anesthesia, initial encounter (principal); R13.10 Dysphagia, unspecified; K59.00 Constipation, unspecified; R53.1 Weakness; E11.9 Type 2 diabetes mellitus without complications; I10 Essential (primary) hypertension; Z90.49 Acquired absence of other specified parts of digestive tract; Z79.82 Long term (current) use of aspirin; Z88.0 Allergy status to penicillin; Z79.899 Other long term (current) drug therapy
CPT/HCPCS: 99283

== ENCOUNTER 2018-09-15 22:23 | Emergency (ER) | payer MEDICAID ==
[~2018-09-15] VITALS: Ht 172.7 cm; Wt 81.6 kg
[2018-09-15 22:23] VITALS: BP 158/99
[~2018-09-15 22:23] MED LIST changes: -INFL60SU14 IMVAC; -LISI10TA11 PO; -TRAZ-286 PO; +TRAZ-370 PO
[2018-09-15 22:55] VITALS: BP 140/90
== END 2018-09-15 22:55 ==
LOC: MED 22:23
DX: Z02.89 Encounter for other administrative examinations (principal); G70.00 Myasthenia gravis without (acute) exacerbation; I10 Essential (primary) hypertension; Z88.0 Allergy status to penicillin; Z79.899 Other long term (current) drug therapy; Z79.1 Long term (current) use of non-steroidal anti-inflammatories (NSAID)
CPT/HCPCS: 99283

== ENCOUNTER 2018-11-21 11:23 | Emergency (ER) | payer MEDICAID ==
[~2018-11-21] VITALS: Ht 167.6 cm; Wt 104.3 kg
[~2018-11-21 11:23] MED LIST changes: +ASPI-1718 PO; -ASPI81CT89 PO; -TRAZ-370 PO; +TRAZ-466 PO
[2018-11-21 11:29] VITALS: BP 126/72
--- NOTE | 2018-11-21 11:44 | NUR ---
PATIENT PRESENTS TO ED WITH pre-book [place] [employer] Officer Theresa pt c/o anterior chest wall burning pain with hacking cough denies recent injury DENIES N/V/D; SKIN IS PINK/WARM/DRY; AAOX4 WITH EVEN AND STEADY GAIT; LUNGS CLEAR BL; HR EVEN AND REGULAR; PATIENT STATES PAIN OF 6/10 AT THIS TIME; VSS; PATIENT POSITIONED FOR COMFORT; HOB ELEVATED; BEDRAILS UP X2; BED DOWN. ER MD MADE AWARE OF PT STATUS.
[2018-11-21 12:39] VITALS: BP 126/72
--- NOTE | 2018-11-21 12:39 | NUR ---
Patient discharged with v/s stable. Written and verbal after care instructions given and explained. Patient verbalized understanding. Police with in custody. All questions addressed prior to discharge. Advised to follow up with PMD.
== END 2018-11-21 12:39 | disposition home or self-care (01) ==
LOC: MED 11:23
DX: R07.89 Other chest pain (principal); I11.0 Hypertensive heart disease with heart failure; I50.9 Heart failure, unspecified; G70.00 Myasthenia gravis without (acute) exacerbation; F17.200 Nicotine dependence, unspecified, uncomplicated; Z88.0 Allergy status to penicillin; Z79.82 Long term (current) use of aspirin; Z79.891 Long term (current) use of opiate analgesic; Z79.899 Other long term (current) drug therapy
CPT/HCPCS: 93005; 99283

== ENCOUNTER 2018-12-16 23:16 | Emergency (ER) | payer SELFPAY ==
[~2018-12-16] VITALS: Ht 175.3 cm; Wt 90.7 kg
[2018-12-16 23:25] VITALS: BP 155/90
[2018-12-16] MEDS ORDERED: CYAN1TAB67 PO (23:52)
[2018-12-16] MEDS ORDERED: MES60 PO (23:52)
[2018-12-16] MEDS ORDERED: ORE25 PO (23:52)
[2018-12-16] MEDS ORDERED: LORA-476 PO (23:52)
[2018-12-16] MEDS ORDERED: QUET25TA PO (23:52)
[2018-12-16] MEDS ORDERED: AMLO10TA PO (23:52)
[2018-12-17 00:01] LABS: BASOPHILS # (AUTO) 0.1 K/uL (0.00-0.22); BASOPHILS % (AUTO) 0.5 % (0.0-2.0); EOSINOPHILS # (AUTO) 0.2 K/uL (0-0.4); EOSINOPHILS % (AUTO) 1.3 % (0.0-4.0); HEMATOCRIT 41.1 % (36-52); HEMOGLOBIN 13.2 g/dL (12.0-18.0); LYMPHOCYTES % (AUTO) 8.9 % (20.5-51.1); MEAN CORPUSCULAR HEMOGLOBIN 27 pg (27-31); MEAN CORPUSCULAR HGB CONC 32 g/dL (33-37); MEAN CORPUSCULAR VOLUME 85.4 fL (80-94); MONOCYTES # (AUTO) 0.8 K/uL (0.8-1.0); NEUTROPHILS # (AUTO) 9.2 K/uL (1.8-7.7); PLATELET COUNT (AUTO) 292 K/uL (140-450); RED BLOOD CELL COUNT(AUTO) 4.81 MIL/uL (4.20-6.10); RED CELL DISTRIBUTION WIDTH 16.6 % (11.6-13.7); WHITE BLOOD COUNT (AUTO) 11.2 K/uL (4.8-10.8)
[2018-12-17 00:18] LABS: CARBON DIOXIDE 31.9 mmol/L (21-32); CREATININE 1.2 mg/dL (0.7-1.3); POTASSIUM 3.9 mmol/L (3.5-5.1)
[2018-12-17 00:22] LABS: ALBUMIN 3.4 g/dL (3.4-5.0); PROTHROMBIN TIME 9.9 secs (10.8-13.4); TOTAL BILIRUBIN 0.2 mg/dL (0.0-1.0)
[2018-12-17 00:23] LABS: NEUTROPHILS % (AUTO) 82.3 % (42.2-75.2)
--- NOTE | 2018-12-17 00:47 | NUR ---
PT TO ED WITH C/O CP WITH COUGH AND BILATERAL LEG PAIN. PT DENIES SOB AT THIS TIME. BILATERAL LEG EDEMA NOTED, 2+ NON PITTING. PT PLACED INTO BED, PPENDING MD MORENO.
--- NOTE | 2018-12-17 00:59 | NUR ---
Dr. Mcintyre evaluating patient at bedside.
[2018-12-17] MEDS ORDERED: ALBUTEROL SULFATE/IPRATROPIU 3 ML SOL IH ONE (01:10)
--- NOTE | 2018-12-17 01:22 | NUR ---
[facility] THERAPY AND RESPIRATORY DRUG GIVEN ORDERED
[2018-12-17 02:06] VITALS: BP 174/97
--- NOTE | 2018-12-17 02:07 | NUR ---
Patient discharged with v/s stable. Written and verbal after care instructions given and explained. Patient alert, oriented and verbalized understanding of instructions. Ambulatory with steady gait. All questions addressed prior to discharge. ID band removed. Patient advised to follow up with PMD. Rx of AZITHROMAX, ALBUTEROL given. Patient educated on indication of medication including possible reaction and side effects. Opportunity to ask questions provided and answered.
== END 2018-12-17 02:07 | disposition home or self-care (01) ==
LOC: MED 23:16
DX: J44.9 Chronic obstructive pulmonary disease, unspecified (principal); J40 Bronchitis, not specified as acute or chronic; R22.43 Localized swelling, mass and lump, lower limb, bilateral; I10 Essential (primary) hypertension; G70.00 Myasthenia gravis without (acute) exacerbation; Z86.79 Personal history of other diseases of the circulatory system; Z88.8 Allergy status to other drugs, medicaments and biological substances; Z88.0 Allergy status to penicillin
CPT/HCPCS: 36415; 71045; 80053; 83880; 84484; 85025; 85610; 85730; 94640; 99284; J7620; Q0092; 93005

== ENCOUNTER 2019-12-27 11:52 | Emergency (ER) | payer OTHER ==
[~2019-12-27] VITALS: Ht 175.3 cm; Wt 88.0 kg
[~2019-12-27 11:52] MED LIST changes: +AMLO10TA PO; -ASPI-1718 PO; +ASPI-1822 PO; +CYAN1TAB67 PO; +LORA-476 PO; +MES60 PO; +QUET25TA PO
[2019-12-27 12:12] VITALS: BP 166/101
--- NOTE | 2019-12-27 12:18 | NUR ---
AMBULATED TO RESTROOM
--- NOTE | 2019-12-27 12:26 | NUR ---
54 Y/O MALE C/O COUGH AND CONGESTION X 2 WKS, SUBJECTIVE FEVER YESTERDAY, AND LOWER ABD PAIN W/ NAUSEA AND DIARRHEA YESTERDAY. ABD SOFT, ROUND, TENDER TO PALP. DENIES VOMITING. STATES PRODUCTIVE COUGH W/ YELLOW SPUTUM. RR EVEN AND UNLABORED. PT ALSO STATES HE NEEDS MED REFILL FOR MYASTHENIA GRAVIS. X 1 SIDE RAIL RAISED. MEDHX: MYASTHENIA GRAVIS, CHF, HTN
[2019-12-27] MEDS ORDERED: predniSONE 20 MG TAB PO ONE (13:35)
[2019-12-27] MEDS ORDERED: ALBUTEROL 0.083% 2.5 MG/3 ML NEBU INH ONE ×2 (13:35→14:35)
[2019-12-27] MEDS ORDERED: IPRATROPIUM 0.02% 0.5 MG/2.5 ML NEBU INH ONE (13:35)
--- NOTE | 2019-12-27 14:29 | NUR ---
SITTING UPRIGHT AWAKE AND ALERT. DENIES PAIN AT THIS TIME. VSS. WILL CONTINUE TO MONITOR
[2019-12-27 15:05] VITALS: BP 158/96
--- NOTE | 2019-12-27 15:06 | NUR ---
Patient discharged with v/s stable. Written and verbal after care instructions given and explained. Patient alert, oriented and verbalized understanding of instructions. Ambulatory with steady gait. All questions addressed prior to discharge. ID band removed. Patient advised to follow up with PMD. Rx of PREDNISONE AND ALBUTEROL given. Patient educated on indication of medication including possible reaction and side effects. Opportunity to ask questions provided and answered.
== END 2019-12-27 15:06 | disposition home or self-care (01) ==
LOC: MED 11:52
DX: J44.1 Chronic obstructive pulmonary disease with (acute) exacerbation (principal); J06.9 Acute upper respiratory infection, unspecified; G70.00 Myasthenia gravis without (acute) exacerbation; I10 Essential (primary) hypertension; G89.29 Other chronic pain; I11.0 Hypertensive heart disease with heart failure; I50.9 Heart failure, unspecified; F17.210 Nicotine dependence, cigarettes, uncomplicated; Z98.890 Other specified postprocedural states; Z88.0 Allergy status to penicillin; Z79.82 Long term (current) use of aspirin; Z79.899 Other long term (current) drug therapy
CPT/HCPCS: 71045; 94640; 99284; J7512; J7613; J7644; Q0092

== ENCOUNTER 2019-12-28 09:57 | Emergency (ER) | payer OTHER ==
[~2019-12-28] VITALS: Ht 175.3 cm; Wt 88.0 kg
--- NOTE | 2019-12-28 10:01 | NUR ---
Patient ambulated to bed 2. RN evaluating patient at bedside.
[2019-12-28 10:04] VITALS: BP 185/99
--- NOTE | 2019-12-28 10:12 | NUR ---
54 Y/O MALE C/O PT STATES CLINIC REFERRED PT TO ER FOR DIFFICULTY BREATHING. PT STATES HE FEELS LIKE IT IS HARD TO BREATH AND C/O MID TO LOWER RIGHT ABD PAIN 8/10 X 1 DAY. PT DENIES ANY ABD TRAUMA AND STATES DID NOT TAKE ANY MEDICATION. RR EVEN AN UNALBORED WITH WHEEZING RR UPON AUSCULTATION FOR INSPIRATORY/EXPIRATORY. DENIES N/V/D; SKIN IS PINK/WARM/DRY; AAOX4 WITH EVEN AND STEADY GAIT; HR EVEN AND REGULAR; PT DENIES ANY FEVER, CP, OR COUGH AT THIS TIME; VSS; PATIENT POSITIONED FOR COMFORT; HOB ELEVATED; BEDRAILS UP X1; BED LOW AND LOCKED. MEDICAL HX: CHF/HTN/PANCREATITIS/COPD/MYASTHENIA GRAVIS ALLERGIES: PCN
[2019-12-28] MEDS ORDERED: ALBUTEROL SULFATE/IPRATROPIU 3 ML SOL IH ONE ×2 (10:55→11:45)
[2019-12-28] MEDS ORDERED: ALBUTEROL 0.083% 2.5 MG/3 ML NEBU INH ONE ×2 (10:55→11:45)
--- NOTE | 2019-12-28 11:09 | NUR ---
Breathing treatment administered by respiratory therapist at bedside.
[2019-12-28 11:16] LABS: BASOPHILS # (AUTO) 0.1 K/uL (0.00-0.22); BASOPHILS % (AUTO) 0.9 % (0.0-2.0); EOSINOPHILS % (AUTO) 0.4 % (0.0-4.0); HEMATOCRIT 45.6 % (36-52); LYMPHOCYTES # (AUTO) 1.6 K/uL (2.0-11.5); MEAN CORPUSCULAR HEMOGLOBIN 28 pg (27-31); MEAN CORPUSCULAR HGB CONC 33 g/dL (33-37); MEAN CORPUSCULAR VOLUME 85.6 fL (80-94); MONOCYTES # (AUTO) 1.1 K/uL (0.8-1.0); MONOCYTES % (AUTO) 10.1 % (1.7-9.3); NEUTROPHILS # (AUTO) 7.7 K/uL (1.8-7.7); NEUTROPHILS % (AUTO) 73.6 % (42.2-75.2); PLATELET COUNT (AUTO) 277 K/uL (140-450); RED BLOOD CELL COUNT(AUTO) 5.33 MIL/uL (4.20-6.10); RED CELL DISTRIBUTION WIDTH 15.3 % (11.6-13.7); WHITE BLOOD COUNT (AUTO) 10.5 K/uL (4.8-10.8)
--- NOTE | 2019-12-28 11:22 | NUR ---
PT SITTING IN POSITION OF COMFORT WITH RT AT BEDSIDE, BED LOW AND LOCKED, 1 SIDERAIL UP, VSS. WILL CONTINUE TO MONITOR .
[2019-12-28 11:32] LABS: ALBUMIN 3.6 g/dL (3.4-5.0); ANION GAP 10.1 (8-16); CREATININE 1.5 mg/dL (0.6-1.3); POTASSIUM 4.1 mmol/L (3.5-5.1); TOTAL BILIRUBIN 0.2 mg/dL (0.0-1.0)
--- NOTE | 2019-12-28 11:45 | NUR ---
DR MERCADO AT BEDSIDE RE-EVALUATING PT
--- NOTE | 2019-12-28 11:50 | NUR ---
PT STATES HAVING DIFFICUTLY BREATHING AGAIN, DR. MERCADO INFORMED.
--- NOTE | 2019-12-28 11:53 | NUR ---
Secondary breathing treatment administered by respiratory therapist at bedside.
[2019-12-28 12:16] VITALS: BP 173/88
--- NOTE | 2019-12-28 12:16 | NUR ---
Patient discharged with v/s stable. Written and verbal after care instructions given and explained. Patient alert, oriented and verbalized understanding of instructions. Ambulatory with steady gait. All questions addressed prior to discharge. ID band removed. Patient advised to follow up with PMD. Rx of ALBUTEROL/PREDNISONE/LISINOPRIL/PYRIDOSTIGMINE BROMIDE given. Patient educated on indication of medication including possible reaction and side effects. Opportunity to ask questions provided and answered.
== END 2019-12-28 12:16 | disposition home or self-care (01) ==
LOC: MED 09:57
DX: J44.9 Chronic obstructive pulmonary disease, unspecified (principal); I11.0 Hypertensive heart disease with heart failure; I50.9 Heart failure, unspecified; G70.00 Myasthenia gravis without (acute) exacerbation; F17.210 Nicotine dependence, cigarettes, uncomplicated; Z88.0 Allergy status to penicillin; Z79.899 Other long term (current) drug therapy; Z98.890 Other specified postprocedural states; Z90.49 Acquired absence of other specified parts of digestive tract
CPT/HCPCS: 36415; 71045; 80053; 83690; 85025; 94640; 99285; J7613; Q0092; 99284

== ENCOUNTER 2020-02-13 17:20 | Inpatient (IN) | payer OTHER ==
[~2020-02-13] VITALS: Ht 170.2 cm; Wt 66.7 kg
[2020-02-13 17:25] VITALS: BP 70/52
[2020-02-13] MEDS ORDERED: NACL 0.9% 1,000 ML IV ONE (17:30)
[2020-02-13 17:56] LABS: BASOPHILS # (AUTO) 0.1 K/uL (0.00-0.22); BASOPHILS % (AUTO) 0.6 % (0.0-2.0); HEMATOCRIT 46.9 % (36-52); HEMOGLOBIN 14.8 g/dL (12.0-18.0); LYMPHOCYTES # (AUTO) 1.4 K/uL (2.0-11.5); LYMPHOCYTES % (AUTO) 11.7 % (20.5-51.1); MEAN CORPUSCULAR HEMOGLOBIN 27 pg (27-31); MEAN CORPUSCULAR HGB CONC 32 g/dL (33-37); MEAN CORPUSCULAR VOLUME 85.4 fL (80-94); MONOCYTES # (AUTO) 0.9 K/uL (0.8-1.0); MONOCYTES % (AUTO) 7.1 % (1.7-9.3); NEUTROPHILS # (AUTO) 9.7 K/uL (1.8-7.7); NEUTROPHILS % (AUTO) 80.6 % (42.2-75.2); PLATELET COUNT (AUTO) 331 K/uL (140-450); RED CELL DISTRIBUTION WIDTH 15.2 % (11.6-13.7); WHITE BLOOD COUNT (AUTO) 12.1 K/uL (4.8-10.8)
[2020-02-13 18:09] LABS: ALBUMIN 3.6 g/dL (3.4-5.0); ANION GAP 14.5 (8-16); CARBON DIOXIDE 26.1 mmol/L (21-32); CREATININE 2.6 mg/dL (0.6-1.3); POTASSIUM 3.6 mmol/L (3.5-5.1); TOTAL BILIRUBIN 0.5 mg/dL (0.0-1.0)
[2020-02-13] MEDS ORDERED: LACTATED RINGERS 1,000 ML IV ONE (18:45)
[2020-02-13 19:15] LABS: APPEARANCE,URINE CLEAR (CLEAR); BILIRUBIN,URINE NEGATIVE (NEGATIVE); BLOOD, URINE TRACE-I (NEGATIVE); COLOR,URINE YELLOW (YELLOW); LEUKOCYTE ESTERASE ,URINE NEGATIVE (NEGATIVE); NITRITE, URINE NEGATIVE (NEGATIVE); UGLUCOSE NEGATIVE (NEGATIVE)
[2020-02-13 19:31] LABS: RBC,URINE 0-5 /HPF (0-5); WBC,URINE 0-5 /HPF (0-5)
[2020-02-13] MEDS ORDERED: ALUMINUM HYD/MAG/SIMETHICONE 30 ML UDC PO ONE (19:40)
[2020-02-13] MEDS ORDERED: LIDOCAINE VISCOUS 2% 20 ML UDC PO ONE (19:40)
[2020-02-13 19:46] LABS: BARBITURATE, URINE NEGATIVE ng/ml (NEG <=200); BENZODIAZEPINE, URINE NEGATIVE ng/mL (NEG <=200); CANNABINOID, URINE POSITIVE ng/mL (NEG <=50); COCAINE, URINE NEGATIVE ng/mL (NEG <=300); OPIATE, URINE NEGATIVE ng/mL (NEG <=2000); PHENCYCLIDINE SCREEN,URINE NEGATIVE ng/mL (NEG <=25)
[2020-02-13 20:02] LABS: ACETAMINOPHEN < 0.5 ug/ml (10-30); SALICYLATE < 2.8 mg/dL (2.8-20.0)
[2020-02-13] MEDS ORDERED: LORazepam 1 MG TAB PO PRN (21:45)
[2020-02-13] MEDS ORDERED: traZODone 50 MG TAB PO PRN (21:45)
[2020-02-13] MEDS ORDERED: QUEtiapine FUMARATE 25 MG TAB PO PRN (21:45)
[2020-02-13] MEDS ORDERED: DOCUSATE SODIUM 100 MG GELCAP PO PRN (21:45)
[2020-02-13] MEDS ORDERED: HYDROcodone/APAP 5/325 MG 1 TAB TAB PO PRN (21:45)
[2020-02-13 22:20] VITALS: BP 113/64
[2020-02-13] MEDS: CIPROFLOXACIN 250 MG TAB PO SCH (22:54)
[2020-02-13] MEDS: metroNIDAZOLE 500 MG/NS PREMIX 100 ML IV SCH (22:54)
[2020-02-13] MEDS: MORPHINE SULFATE 4 MG/ML SYR IVP PRN (22:59)
[2020-02-14] VITALS: BP 130/78
[2020-02-14 04:00] VITALS: BP 112/64
[2020-02-14] MEDS: metroNIDAZOLE 500 MG/NS PREMIX 100 ML IV SCH ×2 (04:05→12:20)
[2020-02-14] MEDS: MORPHINE SULFATE 4 MG/ML SYR IVP PRN (04:06)
[2020-02-14 06:54] LABS: BASOPHILS % (AUTO) 0.4 % (0.0-2.0); EOSINOPHILS % (AUTO) 0.4 % (0.0-4.0); HEMATOCRIT 40.4 % (36-52); HEMOGLOBIN 13.2 g/dL (12.0-18.0); LYMPHOCYTES # (AUTO) 1.7 K/uL (2.0-11.5); LYMPHOCYTES % (AUTO) 18.7 % (20.5-51.1); MEAN CORPUSCULAR HEMOGLOBIN 28 pg (27-31); MEAN CORPUSCULAR HGB CONC 33 g/dL (33-37); MEAN CORPUSCULAR VOLUME 85.4 fL (80-94); MONOCYTES # (AUTO) 0.8 K/uL (0.8-1.0); MONOCYTES % (AUTO) 9.1 % (1.7-9.3); NEUTROPHILS # (AUTO) 6.4 K/uL (1.8-7.7); NEUTROPHILS % (AUTO) 71.4 % (42.2-75.2); PLATELET COUNT (AUTO) 256 K/uL (140-450); RED BLOOD CELL COUNT(AUTO) 4.73 MIL/uL (4.20-6.10); RED CELL DISTRIBUTION WIDTH 15.2 % (11.6-13.7); WHITE BLOOD COUNT (AUTO) 8.9 K/uL (4.8-10.8)
[2020-02-14 07:46] LABS: ALBUMIN 2.9 g/dL (3.4-5.0); ANION GAP 10.4 (8-16); CARBON DIOXIDE 26.7 mmol/L (21-32); CREATININE 1.7 mg/dL (0.6-1.3); POTASSIUM 4.1 mmol/L (3.5-5.1); TOTAL BILIRUBIN 0.5 mg/dL (0.0-1.0)
[2020-02-14] MEDS: CIPROFLOXACIN 250 MG TAB PO SCH (08:56)
[2020-02-14] MEDS ORDERED: ASPIRIN 81 MG TAB.CHEW PO SCH (09:00)
[2020-02-14] MEDS ORDERED: ATORVASTATIN 20 MG TAB PO SCH (09:00)
[2020-02-14] MEDS ORDERED: ESCITALOPRAM 20 MG TAB PO SCH (09:00)
[2020-02-14] MEDS ORDERED: ALBUMIN HUMAN 25% 100 ML IV SCH (09:00)
[2020-02-14 09:05] VITALS: BP 112/67
[2020-02-14] MEDS: PYRIDOSTIGMINE 60 MG TAB PO SCH ×2 (11:44→15:02)
[2020-02-14 12:20] VITALS: BP 132/70
[2020-02-14] MEDS ORDERED: CIPR250T3 PO (15:16)
[2020-02-14] MEDS ORDERED: METR500T1 PO (15:16)
[2020-02-14] MEDS ORDERED: MES60 PO ×2 (15:16→16:34)
[2020-02-14] MEDS ORDERED: PYRIDOSTIGMINE 60 MG TAB PO SCH (15:20)
[2020-02-14 15:25] VITALS: BP 132/70
[2020-02-14] MEDS ORDERED: CIPR250T6 PO (16:31)
[2020-02-14] MEDS ORDERED: METR250T2 PO (16:33)
[2020-02-14 17:00] VITALS: BP 147/72
== END 2020-02-14 18:40 | disposition home or self-care (01) | DRG 244 ==
LOC: MED 17:20 → MTU 21:46
PROVIDERS: ADMIT Internal Medicine; ATTEND Internal Medicine
DX: K57.32 Diverticulitis of large intestine without perforation or abscess without bleeding (principal); N17.9 Acute kidney failure, unspecified; G70.00 Myasthenia gravis without (acute) exacerbation; I95.89 Other hypotension; I11.0 Hypertensive heart disease with heart failure; I50.9 Heart failure, unspecified; J44.9 Chronic obstructive pulmonary disease, unspecified; F17.210 Nicotine dependence, cigarettes, uncomplicated; Z59.0 Homelessness; Z88.0 Allergy status to penicillin; Z79.82 Long term (current) use of aspirin; Z79.899 Other long term (current) drug therapy; Z90.49 Acquired absence of other specified parts of digestive tract
CPT/HCPCS: 36415; 71045; 71275; 80053; 80305; 81001; 83690; 84484; 85025; 87081; 93005; 96360; 96361; 99285; G0480; G0482; J2270; J3490; J7030; P9046; Q0092; Q9967

== ENCOUNTER 2020-04-25 11:12 | Emergency (ER) | payer OTHER ==
[~2020-04-25] VITALS: Ht 175.3 cm; Wt 91.6 kg
[~2020-04-25 11:12] MED LIST changes: -ACET-9525 PO; +CIPR250T6 PO; +METR250T2 PO; -NITR0.4T1 SL; -ORE25 PO
[2020-04-25 11:54] VITALS: BP 147/76
[2020-04-25] MEDS ORDERED: KETOROLAC 30 MG/ML VIAL IM ONE (12:10)
[2020-04-25 12:50] VITALS: BP 147/76
== END 2020-04-25 12:50 | disposition home or self-care (01) ==
LOC: MED 11:12
DX: H60.92 Unspecified otitis externa, left ear (principal); F17.210 Nicotine dependence, cigarettes, uncomplicated; G70.01 Myasthenia gravis with (acute) exacerbation; I51.9 Heart disease, unspecified; I10 Essential (primary) hypertension; J44.9 Chronic obstructive pulmonary disease, unspecified; Z88.0 Allergy status to penicillin; Z79.899 Other long term (current) drug therapy
CPT/HCPCS: 96372; 99283; J1885

== ENCOUNTER 2020-12-11 14:04 | Observation (INO) | payer OTHER, SELFPAY ==
[~2020-12-11] VITALS: Ht 167.6 cm; Wt 98.4 kg
[~2020-12-11 14:04] MED LIST changes: -ESCI20TA47 PO; +ESCI20TA49 PO; -LISI-420 PO; +LISI20TA29 PO; +METR-520 PO; -METR250T2 PO
[2020-12-11 14:12] VITALS: BP 145/88
--- NOTE | 2020-12-11 14:12 | NUR ---
Patient assisted onto bed 8 by EMS.
--- NOTE | 2020-12-11 14:50 | NUR ---
55 y/o male [place]IB[place] from bus stop with c/c of shortness of breath. Pt states SOB since 0500 on 12/11 and decided to call 911 because it worsen. Pt states he has been experiencing anxiety lately that has been causing mild chest pain. Pt denies chest pain at this time, but states "I normally feel this way when I feel anxious." Pt states blurry vision x 3-4 days with headache and diarrhea. Pt states he normally has blurry vision, however, has been having teary eyes lately. Pt states alleviating factors of sitting upright, and anxiety causing the shortness of breath and chest pain to worsen. Pt placed onto lunchroom monitor, tachypneic at 21, respirations even/slightly labored. Pt placed on oxygen 2L/min via N/C for comfort measures. Pt states relief with oxygen. Bed locked in lowest position, side rails x1, call light in reach. PMH: COPD, CHF, MYASTHENIA GRAVIS, HTN, ANXIETY Meds: Pyridastigmine, prednisone, lisinopril, unknown: blood thinner, CHF medication (pt states "water pill") ALLERGIES: PENICILLINS
--- NOTE | 2020-12-11 15:30 | NUR ---
Dr. Clinton is evaluating patient at bedside.
--- NOTE | 2020-12-11 15:49 | NUR ---
XRAY AT BEDSIDE
[2020-12-11] MEDS ORDERED: LORazepam 2 MG/ML VIAL IVP ONE (16:05)
[2020-12-11] MEDS ORDERED: methylPREDNISolone SS 125 MG/2 ML VIAL IVP ONE (16:05)
--- NOTE | 2020-12-11 16:08 | NUR ---
EKG done at the bedside
--- NOTE | 2020-12-11 16:10 | NUR ---
Labs being drawn at the bedside
[2020-12-11 16:23] LABS: BASOPHILS % (AUTO) 0.1 % (0.0-2.0); HEMATOCRIT 35.5 % (36-52); HEMOGLOBIN 11.8 g/dL (12.0-18.0); LYMPHOCYTES # (AUTO) 0.2 K/uL (2.0-11.5); LYMPHOCYTES % (AUTO) 2.2 % (20.5-51.1); MEAN CORPUSCULAR HEMOGLOBIN 31 pg (27-31); MEAN CORPUSCULAR HGB CONC 33 g/dL (33-37); MEAN CORPUSCULAR VOLUME 92.7 fL (80-94); MONOCYTES # (AUTO) 0.2 K/uL (0.8-1.0); MONOCYTES % (AUTO) 2.1 % (1.7-9.3); NEUTROPHILS # (AUTO) 10.5 K/uL (1.8-7.7); NEUTROPHILS % (AUTO) 95.6 % (42.2-75.2); PLATELET COUNT (AUTO) 275 K/uL (140-450); RED BLOOD CELL COUNT(AUTO) 3.83 MIL/uL (4.20-6.10); RED CELL DISTRIBUTION WIDTH 18.8 % (11.6-13.7)
[2020-12-11] MEDS: ALBUTEROL SULFATE/IPRATROPIU 3 ML SOL IH ONE ×3 (16:38→17:47)
[2020-12-11 16:40] LABS: ALBUMIN 4.5 g/dL (3.4-5.0); ANION GAP 9.4 (8-16); ASPARTATE AMINOTRANSFERASE 29 U/L (15-37); CARBON DIOXIDE 31.7 mmol/L (21-32); CHLORIDE 108 mmol/L (98-107); CREATININE 1.4 mg/dL (0.6-1.3); GFR ARICAN-AMERICAN 67 mL/min (>90); GLUCOSE 143 mg/dL (74-106); POTASSIUM 5.1 mmol/L (3.5-5.1); SODIUM SERUM 144 mmol/L (136-145); TOTAL BILIRUBIN 0.6 mg/dL (0.0-1.0); UREA NITROGEN, BLOOD 39 mg/dL (7-18)
--- NOTE | 2020-12-11 16:52 | NUR ---
Cass specimen collected and taken to the lab; specimen handed to label press operator Antonio.
[2020-12-11 17:35] LABS: BARBITURATE, URINE NEGATIVE ng/ml (NEG <=200); BENZODIAZEPINE, URINE POSITIVE ng/mL (NEG <=200)
[2020-12-11 17:36] LABS: CANNABINOID, URINE POSITIVE ng/mL (NEG <=50); COCAINE, URINE NEGATIVE ng/mL (NEG <=300); OPIATE, URINE NEGATIVE ng/mL (NEG <=2000); PHENCYCLIDINE SCREEN,URINE NEGATIVE ng/mL (NEG <=25)
[2020-12-11] MEDS ORDERED: ALBUTEROL SULFATE/IPRATROPIU 3 ML SOL IH ONE (17:45)
--- NOTE | 2020-12-11 19:00 | NUR ---
XRAY AT BEDSIDE
--- NOTE | 2020-12-11 19:24 | NUR ---
Report given to ROS Hooper, who assumed care for patient.
[2020-12-11] MEDS ORDERED: AZITHROMYCIN 250 MG TAB PO ONE (20:10)
[2020-12-11] MEDS ORDERED: cefTRIAXone 1,000 MG VIAL ONE (20:33)
[2020-12-11] MEDS ORDERED: ACETAMINOPHEN 325 MG TAB PO PRN (21:05)
[2020-12-11] MEDS ORDERED: LORazepam 1 MG TAB PO PRN (21:05)
[2020-12-11] MEDS ORDERED: ONDANSETRON 4 MG/2 ML VIAL IVP PRN (21:05)
[2020-12-11] MEDS ORDERED: ALBUTEROL 0.083% 2.5 MG/3 ML NEBU INH PRN (21:05)
[2020-12-11] MEDS ORDERED: FUROSEMIDE 40 MG/4 ML VIAL IVP ONE (21:20)
--- NOTE | 2020-12-11 22:55 | NUR ---
Patient will be admitted to care of DR TROTTER. Admited to [facility] . Will go to room 106B. Belongings list completed. Report to ROS SÁNCHEZ.
[2020-12-11 23:10] VITALS: BP 120/84
--- NOTE | 2020-12-11 23:10 | NUR ---
RECEIVED PT AAOX4 , STUTERRED SPEECH - PER PT HE SPEAK LIKE THAT BECAUSE OF HIS MYASTHENIA GRAVIS . W/ L EYE PTOSIS. AT ER ATIVAN GIVEN DUE TO S/SX OF ANXIETY , O2 SAT WNL - HX COPD - ON 02 AT 2LPM/NC .AMBULATES TO BED W/ STANDY ASSIST . ADMISSION ASSESSMENT - DONE , MRSA SPECIMEN TO BE SENT . TO LAB . SAFETY MEASURES IN PLACE . CALL LIGHT / URINAL WITHIN REACH . POC DISCUSSED AND VERBALIZE UNDERSTANDING . WILL CONT. TO MONITOR . SKIN INTACT BUT THERE HEALED WOUND ON R UPPER ARM - PER PT HE RECENTLY DX W/ MRSA SKIN WHEN HE WAS IN [facility] WEEKS AGO - HE TAKING ANTIBIOTIC FOR THAT . - NURSE ELIAS INFORM - PER CHARGE NURSE ELIAS - NO NEED FOR WOUND CONSULT - SINCE PT 'S SKIN INTACT AND NO MORE PUT ON ISOLATION . ON TELE MONITOR , WILL CONT. TO MONITOR .
[2020-12-12] MEDS: HYDROcodone/APAP 5/325 MG 1 TAB TAB PO PRN ×2 (01:01→16:16)
[2020-12-12 04:00] VITALS: BP 113/65
[2020-12-12] MEDS: MORPHINE SULFATE 2 MG/ML SYR IVP PRN ×2 (04:17→12:24)
--- NOTE | 2020-12-12 04:17 | NUR ---
BP 135/100 , RR 20 , O2 SAT 93 % - C/O KNEE ANG LEG PAIN - MORPHINE TIV GIVEN ORDERED . WILL CONT. TO MONITOR .
--- NOTE | 2020-12-12 06:00 | NUR ---
PT WALKS BACK AND FORTH , AND SPEAK TOO FAST - SHOWING SIGNS OF ANXIETY - WILL GIVE ATIVAN .
[2020-12-12 06:02] LABS: BASOPHILS % (AUTO) 0.3 % (0.0-2.0); HEMATOCRIT 35.7 % (36-52); HEMOGLOBIN 11.8 g/dL (12.0-18.0); LYMPHOCYTES # (AUTO) 0.3 K/uL (2.0-11.5); LYMPHOCYTES % (AUTO) 2.6 % (20.5-51.1); MEAN CORPUSCULAR HEMOGLOBIN 31 pg (27-31); MEAN CORPUSCULAR HGB CONC 33 g/dL (33-37); MEAN CORPUSCULAR VOLUME 93.3 fL (80-94); MONOCYTES # (AUTO) 0.2 K/uL (0.8-1.0); MONOCYTES % (AUTO) 2.1 % (1.7-9.3); NEUTROPHILS # (AUTO) 9.8 K/uL (1.8-7.7); PLATELET COUNT (AUTO) 301 K/uL (140-450); RED BLOOD CELL COUNT(AUTO) 3.83 MIL/uL (4.20-6.10); RED CELL DISTRIBUTION WIDTH 18.3 % (11.6-13.7); WHITE BLOOD COUNT (AUTO) 10.3 K/uL (4.8-10.8)
--- NOTE | 2020-12-12 07:00 | NUR ---
ON TELE MONITOR TACHY - BUT I COUNT THE CR BY AUSCULTATION - 98 / MIN - RESTING ON BED .
[2020-12-12 07:02] LABS: ALBUMIN 4.3 g/dL (3.4-5.0); ANION GAP 13.5 (8-16); CARBON DIOXIDE 29.7 mmol/L (21-32); CREATININE 1.5 mg/dL (0.6-1.3); MAGNESIUM 2.1 mg/dL (1.8-2.4); POTASSIUM 5.2 mmol/L (3.5-5.1); TOTAL BILIRUBIN 0.5 mg/dL (0.0-1.0)
--- NOTE | 2020-12-12 07:45 | NUR ---
ENDORSED - PT -STABLE - HOOK ON O2 SAT MONITOR - O2 WNL .
--- NOTE | 2020-12-12 07:50 | NUR ---
RECEIVED PT FROM UTILIZATION REVIEW COORDINATOR NURSE, PRINCESS, PT IS AWAKE AND ALERT AND ON O2 2L NC, IV LINE NOTED ON THE RT HAND G. 22 ON SALINE LOCK, SIDE RAILS UP AND CALL LIGHT WITHIN REACH, NO SIGN OF DISTRESS NOTED AND WILL CONTINUE TO BE MONITORED.
[2020-12-12 08:00] VITALS: BP 123/75
--- NOTE | 2020-12-12 08:36 | NUR ---
PATIENT HAS BEEN SCREENED AND CATEGORIZED MODERATE NUTRITION RISK. PATIENT WILL BE SEEN WITHIN 3-5 DAYS OF ADMISSION. 12/14/20 12/16/[address]
[2020-12-12] MEDS ORDERED: ENOXAPARIN 40 MG/0.4 ML SYR SUBQ SCH (09:00)
[2020-12-12] MEDS ORDERED: amLODIPine 5 MG TAB PO SCH (09:00)
[2020-12-12] MEDS ORDERED: predniSONE 20 MG TAB PO SCH (09:00)
[2020-12-12] MEDS ORDERED: carvediloL 6.25 MG TAB PO SCH ×2 (09:00→21:00)
[2020-12-12] MEDS ORDERED: ATORVASTATIN 20 MG TAB PO SCH (09:00)
[2020-12-12] MEDS ORDERED: ASPIRIN 81 MG TAB.CHEW PO SCH (09:00)
[2020-12-12] MEDS ORDERED: ESCITALOPRAM 20 MG TAB PO SCH (09:00)
[2020-12-12] MEDS ORDERED: PYRIDOSTIGMINE 60 MG TAB PO SCH ×2 (09:00→21:00)
--- NOTE | 2020-12-12 09:17 | NUR ---
PT WAS GIVEN THE SCHEDULED AM MEDICATIONS NOW, CRUSHED, ASPIRATION PRECAUTION INITIATED, TOLERATED AND WILL CONTINUE TO BE MONITORED.
[2020-12-12 12:00] VITALS: BP 120/61
--- NOTE | 2020-12-12 12:23 | NUR ---
SOCIAL WORK NOTE: Patient's Orientation Person Situation Unable To Assess Place Time Information Provided By PATIENT Comments SW MET WITH PATIENT AT BEDSIDE TO COMPLETE ASSESSMENT. Application Project Leader, Realtionship and Phone Number N/A Healthcare Power of Designer/Writer No Does Patient Have a POLST No Identifying Problems No Social Work Triggers Is A Social Work Consult Needed No Mandate Report Filed No Explanation Of Identifying Problems PATIENT IS A 55-YEAR-OLD MALE ADMITTED FOR SHORTNESS FO BREATH. PATIENT HAS PMHX OF METHAMPHETAMINE USE, HYPERTENSION, COPD, AND CHF. PATIENT STATED THAT HE WAS HOMELESS AND WAS STAYING AT [facility]. PATIENT ACCEPTED HOMELESS RESOURCES. PATIENT ALSO STATED THAT HE USES METHAMPHETAMINES. PATIENT ACCEPTED SUBSTANCE RESOURCES. WHEN SW DISCUSSED DISCHARGE PLAN, PATIENT STATED THAT HE DENIES ROOM AND BOARD RESOURCES AND THAT HE WILL COORDINATE LIVING ARRANGEMENTS HIMSELF. PATIENT STATED HE WAS IN CONTACT WITH [employer] REGARDING HOUSING. Admitted From Home Pre-Admission Level Of Functioning Status Independent/Ambulatory Prior Resources/Services Used In Last 12 Months No Prior Resources Used Prior DME No Prior DME Used Dialysis Comments N/A Living Situation Homeless Other Living Situation/Comment PATIENT ACCEPTED HOMELESS RESOURCES. Patient Had Caregiver No Home Support No Caregiver Issues Financial Issues No Known Financial Issue Referral To The Financial Counselor Needed No Factors/Needs Drug/Alcohol Treatment Usp/Homeless Explanation And Or Other Factors Affecting/Possible DC Needs PATIENT ACCEPTED HOMELESS RESOURCES AND SUBSTANCE ABUSE RESOURCES. Pt/Rep Participated In Discharge Plan Yes Patient/Family Agress With Discharge Plan Yes Discharge Plan Comments TENTATIVE DISCHARGE PLAN IS FOR PATIENT TO COORDINATE LIVING ARRANGEMENTS AFTER DISCHARGE. DC Plan Status Initiated Addendum: 12/12/20 at 1552 by Odell VAUGHN SW RECEIVED PHYSICIAN'S ORDER FOR PLACEMENT FOR PATIENT. SW MET WITH PATIENT AT BEDSIDE ONCE MORE TO DISCUSS DISCHARGE PLAN. PATIENT STATED THAT HE IS COORDINATING HOUSING WITH [employer] AND IS NOT AGREEABLE TO [facility] OR RECUPER[facility]IVE [facility]ARE. PATIENT STATED THAT HE HAS BEEN USING RESOURCES TO MAKE ARRANGEMENTS AND IS ON WAITING LIST FOR HOUSING WITH INSURANCE. PATIENT REFUSED ASSISTANCE WITH PLACEMENT. SW WILL REMAIN AVAILABLE IF FURTHER ISSUES ARISE.
--- NOTE | 2020-12-12 12:24 | NUR ---
PT WAS GIVEN PAIN MEDICATION IVP FOR C/O PAIN RATE OF 7/10, BP IS 120/61, PULSE IS 69, O2 SATURATION IS 96Y% ON O2 2L NC, WILL CONTINUE TO MONITOR PT.
--- NOTE | 2020-12-12 12:27 | NUR ---
DC PLANNIN YRS OLD MALE HOMELESS PATIENT WAS ADMITTED FROM ER WITH A DX OF SHORTNESS OF BREATHING. PT HAS A HX OF METH USE , COPD, HTN , CHF ANXIETY AND MYASTHENIA GRAVIS. CXR SHOWED HYPO-EXPAND LUNGS WITH BIBASILAR ATELECTASIS VS INFILTRATES. RAPID COVID TEST NEGATIVE . ON O2 2L/NC SATING 98%. STARTED WITH AZITHROMYCIN IV ABX AND CONTINUED HOME MEDS. DC PLAN NONFARM ANIMAL CARETAKER TO EVALUATE FOR HOMELESSNESS. CM TO FOLLOW
[2020-12-12] MEDS ORDERED: LORazepam 1 MG TAB PO PRN (15:15)
[2020-12-12] MEDS ORDERED: traZODone 50 MG TAB PO PRN (15:15)
[2020-12-12] MEDS ORDERED: QUEtiapine FUMARATE 25 MG TAB PO PRN (15:15)
[2020-12-12 16:00] VITALS: BP 128/69
--- NOTE | 2020-12-12 16:16 | NUR ---
PT WAS GIVEN PAIN MEDICATION FOR C/O PAIN RATE OF 6/10, PARAMETER CHECKED, DR. HAY TALKING TO PT NOW, PT RESPONDING APPROPRIATELY AND VERBALIZED UNDERSTANDING OF WHAT MD IS SAYING, AND WILL CONTINUE TO MONITOR PT.
[2020-12-12] MEDS ORDERED: LORA-476 PO (16:21)
--- NOTE | 2020-12-12 17:10 | NUR ---
DISCHARGED PT BY HIMSELF AND PROVIDED TWO BUS PASSES, TEACHINGS AND INSTRUCTIONS WERE GIVEN TO PT AND PT VERBALIZED UNDERSTANDING, IV LINE AND ARM BAND REMOVED,LUNCH BAG WAS PROVIDED TO PT, DENIES PAIN AND IS STABLE AT THIS TIME.
[2020-12-12] MEDS ORDERED: lisinopriL 20 MG TAB PO SCH ×2 (21:00)
[2020-12-12] MEDS ORDERED: AZITHROMYCIN 500 MG in DEXTROSE 5% 250 ML IV SCH (21:00)
[2020-12-13] MEDS ORDERED: amLODIPine 5 MG TAB PO SCH (09:00)
[2020-12-13] MEDS ORDERED: ASPIRIN 81 MG TAB.CHEW PO SCH (09:00)
[2020-12-13] MEDS ORDERED: ATORVASTATIN 20 MG TAB PO SCH (09:00)
[2020-12-13] MEDS ORDERED: ESCITALOPRAM 20 MG TAB PO SCH (09:00)
--- NOTE | 2020-12-16 20:09 | NUR ---
LATE ENTRY--- ROCEPHIN IVPB ENDED AT 2114.
== END 2020-12-12 17:10 | disposition home or self-care (01) ==
LOC: MED 14:04 → INTOOBSV 21:14 → MTU 21:14
PROVIDERS: ADMIT Hospitalist; ATTEND Hospitalist
DX: G70.00 Myasthenia gravis without (acute) exacerbation (principal); Z20.822 Contact with and (suspected) exposure to COVID-19; I13.10 Hypertensive heart and chronic kidney disease without heart failure, with stage 1 through stage 4 chronic kidney disease, or unspecified chronic kidney disease; N18.30 Chronic kidney disease, stage 3 unspecified; J44.1 Chronic obstructive pulmonary disease with (acute) exacerbation; R51.9 Headache, unspecified; F41.9 Anxiety disorder, unspecified; F15.20 Other stimulant dependence, uncomplicated; F19.10 Other psychoactive substance abuse, uncomplicated; Z87.891 Personal history of nicotine dependence; Z79.82 Long term (current) use of aspirin; Z79.899 Other long term (current) drug therapy; Z88.0 Allergy status to penicillin
CPT/HCPCS: 36415; 71045; 80053; 80305; 83735; 84484; 85025; 87081; 87426; 93005; 96365; 96372; 96375; 96376; 99285; 99406; G0378; G0482; J0696; J1650; J1940; J2060; J2270; J2930; J7512; J0456; J2405; J7060

== ENCOUNTER 2021-11-12 07:56 | Inpatient (IN) | payer OTHER, SELFPAY ==
[~2021-11-12] VITALS: Ht 170.2 cm; Wt 103.9 kg
[~2021-11-12 07:56] MED LIST changes: +ACET-1182 PO; +ACET-9525 PO; +ALBU3SOL83 IH; +AMLO-3 PO; -AMLO10TA PO; +APIX2.5 PO; -CIPR250T6 PO; +DEXA4VIA11 IVP; +FURO40TA9 PO; -LISI20TA29 PO; -METR-520 PO; -QUET25TA PO; +ROB PO; -TRAZ-466 PO; +levofloxacin IV
[2021-11-12 08:13] VITALS: BP 106/70
[2021-11-12] MEDS ORDERED: DILTIAZEM 25 MG/5 ML VIAL IVP ONE ×2 (08:15→11:40)
--- NOTE | 2021-11-12 08:20 | NUR ---
BIBA to bed 03
--- NOTE | 2021-11-12 08:42 | NUR ---
Lab at bedside
--- NOTE | 2021-11-12 08:44 | NUR ---
56 y/o M BIBA from [facility] c/o rapid heart rate, abdominal pain and SOB. Pt A&Ox4, non-ambulatory d/t pain, states 9/10, dull/intermittent, non-radiating abd pain x 4 days with associated nausea without vomiting. EMS reports pt with AFib RVR prior to arrival. Pt states fatigue and inability to walk due to weakness. Pt noted with dry, yellow diarrhea. playground monitor and gown in place. Abd soft/round/tender. Bed locked in lowest position, side rails x 2. PMH: CHF, COPD, HTN, stage 3 kidney dx, Pre-DM, myasthenia gravis A: PCN Meds: pyridostigmine, amlodipine, lisinopril, prednisone, albuterol/atrovent, ibuprofen, Tylenol,
--- NOTE | 2021-11-12 08:45 | NUR ---
Dr. Barrett is evaluating pt at bedside
[2021-11-12 09:03] LABS: BASOPHILS # (AUTO) 0.1 K/uL (0.00-0.22); BASOPHILS % (AUTO) 0.4 % (0.0-2.0); EOSINOPHILS % (AUTO) 0.1 % (0.0-4.0); HEMATOCRIT 48.3 % (36-52); HEMOGLOBIN 15.9 g/dL (12.0-18.0); LYMPHOCYTES # (AUTO) 1.1 K/uL (2.0-11.5); LYMPHOCYTES % (AUTO) 8.5 % (20.5-51.1); MEAN CORPUSCULAR HEMOGLOBIN 28 pg (27-31); MEAN CORPUSCULAR HGB CONC 33 g/dL (33-37); MEAN CORPUSCULAR VOLUME 86.6 fL (80-94); MONOCYTES # (AUTO) 0.9 K/uL (0.8-1.0); MONOCYTES % (AUTO) 7.1 % (1.7-9.3); NEUTROPHILS # (AUTO) 10.6 K/uL (1.8-7.7); NEUTROPHILS % (AUTO) 83.9 % (42.2-75.2); PLATELET COUNT (AUTO) 323 K/uL (140-450); RED BLOOD CELL COUNT(AUTO) 5.58 MIL/uL (4.20-6.10); RED CELL DISTRIBUTION WIDTH 17.2 % (11.6-13.7); WHITE BLOOD COUNT (AUTO) 12.6 K/uL (4.8-10.8)
[2021-11-12 09:33] LABS: PROTHROMBIN TIME 10.4 secs (10.8-13.4)
--- NOTE | 2021-11-12 10:38 | NUR ---
Pt transported to CT by wheelchair.
[2021-11-12 10:42] LABS: ALBUMIN 3.5 g/dL (3.4-5.0); ANION GAP 20.2 (8-16); CARBON DIOXIDE 20.7 mmol/L (21-32); MAGNESIUM 2.3 mg/dL (1.8-2.4); POTASSIUM 3.9 mmol/L (3.5-5.1); THYROID STIMULATING HORMONE 0.4 uIU/mL (0.34-3.74); TOTAL BILIRUBIN 0.9 mg/dL (0.0-1.0)
--- NOTE | 2021-11-12 10:48 | NUR ---
Pt returned from CT. Back onto site monitor.
--- NOTE | 2021-11-12 10:53 | NUR ---
HR 158. Dr. Barrett made aware and orders to be placed.
[2021-11-12] MEDS ORDERED: METOPROLOL 25 MG TAB PO ONE ×2 (10:55→12:30)
--- NOTE | 2021-11-12 11:00 | NUR ---
Per Dr. Barrett, hold metoprolol 25mg PO until CT results return.
[2021-11-12] MEDS ORDERED: NACL 0.9% 500 ML IV ONE (11:40)
[2021-11-12] MEDS ORDERED: NACL 0.9% 1,000 ML IV ONE (11:55)
--- NOTE | 2021-11-12 11:58 | NUR ---
1L total to be given per Dr. Barrett. made aware of pain; orders to be placed.
[2021-11-12] MEDS ORDERED: VANCOMYCIN 1,000 MG in DEXTROSE 5% 250 ML IV ONE (12:05)
[2021-11-12] MEDS ORDERED: cefTRIAXone 1,000 MG VIAL ONE (12:49)
[2021-11-12 13:05] LABS: APPEARANCE,URINE CLEAR (CLEAR); BILIRUBIN,URINE 1+ (NEGATIVE); BLOOD, URINE 1+ (NEGATIVE); COLOR,URINE YELLOW (YELLOW); LEUKOCYTE ESTERASE ,URINE NEGATIVE (NEGATIVE); NITRITE, URINE NEGATIVE (NEGATIVE); UGLUCOSE NEGATIVE (NEGATIVE)
[2021-11-12 13:30] LABS: RBC,URINE 0-5 /HPF (0-5)
[2021-11-12 13:31] LABS: WBC,URINE NONE SEEN /HPF (0-5)
[2021-11-12] MEDS ORDERED: guaiFENesin 20 MG/ML UDC PO PRN (13:45)
[2021-11-12] MEDS ORDERED: SODIUM PHOS / POTASSIUM PHOS 1 PKT PDR PO PRN (13:45)
[2021-11-12] MEDS ORDERED: ONDANSETRON 4 MG/2 ML VIAL IM/IVP PRN (13:45)
[2021-11-12] MEDS ORDERED: POTASSIUM CHLORIDE 10 MEQ TABER PO PRN (13:45)
[2021-11-12] MEDS ORDERED: DOCUSATE SODIUM 100 MG GELCAP PO PRN (13:45)
[2021-11-12] MEDS ORDERED: MAGNESIUM OXIDE 400 MG TAB PO PRN (13:45)
[2021-11-12] MEDS ORDERED: ACETAMINOPHEN 325 MG TAB PO PRN (13:45)
[2021-11-12] MEDS: NACL 0.9% 1,000 ML IV SCH (14:00)
--- NOTE | 2021-11-12 14:16 | NUR ---
Pharmacy called stating to verify PCN allergy. Pt reports "My mom told me I had a PCN allergy when I was a child. I don't know what reactions I have." Rocephin IVPB infusing with 30mL remaining; pt denies SOB, hives, itchiness, sore throat, facial swelling, chest pain. Pharmacy made aware and states continue to run and monitor for AE.
[2021-11-12 15:40] LABS: MAGNESIUM 2.5 mg/dL (1.8-2.4); PHOSPHORUS 4.2 mg/dL (2.5-4.9)
[2021-11-12] MEDS ORDERED: DIGOXIN 0.25 MG/ML AMP IV SCH (15:48)
[2021-11-12] MEDS ORDERED: VANCOMYCIN 1,000 MG VIAL ONE (18:17)
[2021-11-12] MEDS: PYRIDOSTIGMINE 60 MG TAB PO SCH (19:07)
[2021-11-12] MEDS: MORPHINE SULFATE 2 MG/ML SYR IVP PRN (19:09)
--- NOTE | 2021-11-12 19:32 | NUR ---
Report and transfer of care endorsed to ROS Mcdonough.
[2021-11-12] MEDS ORDERED: carvediloL 6.25 MG TAB PO SCH (21:00)
[2021-11-12] MEDS: METOPROLOL 50 MG TAB PO SCH (21:00)
[2021-11-12] MEDS: HYDROcodone/APAP 5/325 MG 1 TAB TAB PO PRN (23:09)
[2021-11-13] MEDS: APIXABAN 2.5 MG TAB PO SCH ×3 (00:05→21:28)
[2021-11-13] MEDS: PYRIDOSTIGMINE 60 MG TAB PO SCH ×5 (00:24→23:32)
[2021-11-13 01:16] VITALS: BP 113/94
--- NOTE | 2021-11-13 01:16 | NUR ---
RECEIVED PT FROM ED VIA [facility], PT IS AAOX4. DENIES HEADACHE/DIZZINESS. ABLE TO FOLLOW COMMANDS. NO SOB NOTED, LUNG SOUNDS CTA. DENIES CHEST PAIN/PRESSURE, AFIB ON THE MONITOR, HR AT 101. STATED THAT HE HAS DIARRHEA AND HAS 6/10 ABDOMINAL PAIN, TOLERABLE AT THIS TIME. HAS PERIODS OF URINARY INCONTINENCE. NOTED IV SITE ON THE LFA IS SWOLLEN, IV SITE WAS REMOVED, NEW IV INSERTED ON THE LFA GAUGE 20 W/ GOOD BLOOD RETURN. PATIENT ALSO HAS AN IV SITE ON THE LEFT WRIST GAUGE 20, FLUSHES WELL. W/ DARK DISCOLORATION AND ERYTHEMA ON THE RIGHT ELBOW, STATED THAT HE HAD PREVIOUS HISTORY OF MRSA WOUND MORE THAN A MONTH AGO. GENERALIZED WEAKNESS NOTED. SIDE RAILS UPX2. CALL LIGHT ON REACH. WILL CONT TO MONITOR
--- NOTE | 2021-11-13 02:48 | NUR ---
HR RANGES BETWEEN 120-140'S. AFIB W/ RVR ON THE MONITOR, PAGING DR. MOROCHO TO MADE AWARE
[2021-11-13] MEDS ORDERED: METOPROLOL 50 MG TAB PO SCH (02:50)
--- NOTE | 2021-11-13 02:50 | NUR ---
SPOKE TO DR. MOROCHO ABOUT PT'S HEART RATE RANGING BETWEEN 120-140'S. PER DR. MOROCHO, GIVE ONE TIME DOSE OF METOPROLOL 50 MG PO
--- NOTE | 2021-11-13 03:01 | NUR ---
METOPROLOL 50 MG PO X1 DOSE GIVEN FOR HR 120-140'S. NV=[id number]
[2021-11-13 04:17] VITALS: BP 100/63
--- NOTE | 2021-11-13 06:05 | NUR ---
PATIENT HAS HIS EYES CLOSED, NO S/S OF PAIN AND SOB. ABDOMEN IS SOFT AND ROUND. DENIES CHEST PAIN/PRESSURE, REMAINS AFIB ON THE MONITOR, HR RANGES BETWEEN 95-108. IV SITES ON THE LFA AND LEFT WRIST ARE PATENT AND INTACT, GAUGE 20. NEEDS ARE ATTENDED. CALL LIGHT ON REACH. WILL ENDORSE TO INCOMING SHIFT FOR CONTINUITY OF CARE
[2021-11-13 07:13] LABS: BASOPHILS # (AUTO) 0.1 K/uL (0.00-0.22); BASOPHILS % (AUTO) 0.6 % (0.0-2.0); EOSINOPHILS # (AUTO) 0.1 K/uL (0-0.4); EOSINOPHILS % (AUTO) 0.5 % (0.0-4.0); HEMATOCRIT 43.1 % (36-52); HEMOGLOBIN 14.2 g/dL (12.0-18.0); LYMPHOCYTES # (AUTO) 2.1 K/uL (2.0-11.5); LYMPHOCYTES % (AUTO) 21.8 % (20.5-51.1); MEAN CORPUSCULAR HEMOGLOBIN 29 pg (27-31); MEAN CORPUSCULAR HGB CONC 33 g/dL (33-37); MEAN CORPUSCULAR VOLUME 87.1 fL (80-94); MONOCYTES # (AUTO) 0.9 K/uL (0.8-1.0); MONOCYTES % (AUTO) 9.5 % (1.7-9.3); NEUTROPHILS # (AUTO) 6.6 K/uL (1.8-7.7); NEUTROPHILS % (AUTO) 67.6 % (42.2-75.2); PLATELET COUNT (AUTO) 286 K/uL (140-450); RED BLOOD CELL COUNT(AUTO) 4.95 MIL/uL (4.20-6.10); WHITE BLOOD COUNT (AUTO) 9.8 K/uL (4.8-10.8)
--- NOTE | 2021-11-13 07:27 | NUR ---
RECEIVED REPORT FROM ASSOCIATE PROFESSOR OF BIOSTATISTICS NURSE FOR CONTINUITY OF CARE. PT IS AWAKE AND ALERT. A&OX4. ON RA WITH BREATHING UNLABORED. ON TELE MONITOR. URINAL AT BEDSIDE FOR VOIDING. PERIODS OF INCONTINENCE REPORTED BY ASSOCIATE PROFESSOR OF BIOSTATISTICS NURSE. SKIN IS WARM, DRY, AND INTACT. IV'S ARE IN PLACE IN THE LEFT WRIST AND FOREARM. PT IS STABLE. PLAN OF CARE DISCUSSED.
[2021-11-13 08:00] VITALS: BP 121/61
[2021-11-13 08:42] LABS: ANION GAP 14.6 (8-16); CARBON DIOXIDE 24.6 mmol/L (21-32); CREATININE 1.6 mg/dL (0.6-1.3); POTASSIUM 4.2 mmol/L (3.5-5.1)
--- NOTE | 2021-11-13 08:51 | NUR ---
PATIENT HAS BEEN SCREENED AND CATEGORIZED HIGH NUTRITION RISK. PATIENT WILL BE SEEN WITHIN 1-2 DAYS OF ADMISSION. / MIGUEL MORTON RD
[2021-11-13] MEDS ORDERED: ASPIRIN 81 MG TAB.CHEW PO SCH (09:00)
[2021-11-13] MEDS ORDERED: amLODIPine 5 MG TAB PO SCH (09:00)
[2021-11-13] MEDS: ATORVASTATIN 20 MG TAB PO SCH (09:02)
[2021-11-13] MEDS: METOPROLOL 50 MG TAB PO SCH ×2 (09:02→21:00)
[2021-11-13] MEDS: ESCITALOPRAM 20 MG TAB PO SCH (09:02)
[2021-11-13] MEDS: PANTOPRAZOLE 40 MG TABEC PO SCH (09:02)
[2021-11-13] MEDS: HYDROcodone/APAP 5/325 MG 1 TAB TAB PO PRN (09:12)
--- NOTE | 2021-11-13 09:12 | NUR ---
PT STATES HE IS HAVING GENERALIZED PAIN ALL OVER BODY AT A SCALE OF 6/10. PT WAS GIVEN NORCO FOR PAIN. WILL MONITOR PAIN.
[2021-11-13] MEDS ORDERED: DIGOXIN 0.25 MG/ML AMP IV SCH ×2 (10:30→17:00)
--- NOTE | 2021-11-13 11:30 | NUR ---
ROUNDED ON PT. HE VOIDED ON HIMSELF CLEAR, YELLOW URINE. PT WAS CHANGED AND REPOSITIONED. IV IS STILL INTACT AND INFUSING FLUIDS ORDERED. PT IS STABLE.
[2021-11-13 12:00] VITALS: BP 101/72
--- NOTE | 2021-11-13 13:35 | NUR ---
PT STATES HE HAS PAIN BUT IT IS TOLERABLE. STATES THAT THE PAIN IS THROUGHOUT THE BODY AND ACHING. STATES PAIN AT A SCALE OF 4/10. WILL CONTINUE TO MONITOR PAIN.
[2021-11-13] MEDS: NACL 0.9% 1,000 ML IV SCH (14:24)
--- NOTE | 2021-11-13 15:11 | NUR ---
PT IS ASLEEP. NO DISTRESS NOTED. ON RA WITH BREATHING UNLABORED. NO PAIN AT THIS TIME. CALL LIGHT WITHIN REACH.
[2021-11-13 18:00] VITALS: BP 105/65
[2021-11-13] MEDS: MORPHINE SULFATE 2 MG/ML SYR IVP PRN (18:48)
--- NOTE | 2021-11-13 18:48 | NUR ---
PT STATES HE HAS PAIN AT A SCALE OF 8/10 GENERALIZED. PT WAS GIVEN MORPHINE FOR PAIN IVP. BP WAS STABLE PRIOR TO ADMINISTRATION OF MEDICATION.
--- NOTE | 2021-11-13 19:23 | NUR ---
ENDORSED PT TO VAULT WORKER NURSE FOR CONTINUITY OF CARE. PT IS STABLE. PLAN OF CARE DISCUSSED.
--- NOTE | 2021-11-13 19:25 | NUR ---
RECEIVED REPORT FROM DAY SHIFT NURSE FOR CONTINUITY OF CARE. A&OX4. ON RA.BREATHING EQUAL AND UNLABORED. ON TELE MONITOR. URINAL AT BEDSIDE. SKIN IS WARM, DRY, AND INTACT. IV'S ARE IN PLACE IN THE LEFT WRIST AND FOREARM. ALL PRECAUTIONS IN PLACE.CALL LIGHT WITHIN REACH. WILL CONTINUE TO MONITOR.
[2021-11-13 20:00] VITALS: BP 98/58
--- NOTE | 2021-11-13 21:30 | NUR ---
SCHEDULED MEDICATIONS GIVEN. PT TOLERATED WELL. ALL PRECAUTIONS IN PLACE. CALL LIGHT WITHIN REACH.WILL CONTINUE TO MONITOR.
--- NOTE | 2021-11-13 23:30 | NUR ---
PT ASLEEP. VISIBLE CHEST RISE AND FALL NOTED. NO S/SX OF DISTRESS.ALL PRECAUTIONS IN PLACE. WILL CONTINUE TO MONITOR.
[2021-11-14] VITALS: BP 114/70
--- NOTE | 2021-11-14 | NUR ---
SCHEDULED MEDICATIONS GIVEN. PT TOLERATED WELL. ALL PRECAUTIONS IN PLACE. CALL LIGHT WITHIN REACH.WILL CONTINUE TO MONITOR.
--- NOTE | 2021-11-14 01:30 | NUR ---
PT ASLEEP. VISIBLE CHEST RISE AND FALL NOTED. NO S/SX OF DISTRESS.ALL PRECAUTIONS IN PLACE. WILL CONTINUE TO MONITOR.
[2021-11-14] MEDS: MORPHINE SULFATE 2 MG/ML SYR IVP PRN ×2 (02:56→12:12)
--- NOTE | 2021-11-14 03:07 | NUR ---
ASSISTED PT TO THE RESTROOM. PROVIDED SOCKS AND WARM BLANKETS. ALSO, PT COMPLAINED OF GENERALIZED PAIN. PRN PAIN MEDICATION GIVEN. CALL LIGHT WITHIN REACH. WILL CONTINUE TO MONITOR.
[2021-11-14 04:00] VITALS: BP 120/72
[2021-11-14] MEDS: PYRIDOSTIGMINE 60 MG TAB PO SCH ×3 (05:25→18:02)
--- NOTE | 2021-11-14 06:25 | NUR ---
PT IS STABLE. NO ACUTE EVENT THROUGHOUT THE NIGHT. NO S/SX OF DISTRESS NOTED. ALL NEEDS MET. ALL PRECAUTIONS IN PLACE. CALL LIGHT WITHIN REACH. WILL ENDORSE TO AM SHIFT NURSE.
--- NOTE | 2021-11-14 07:15 | NUR ---
Received report from pm nurse José. Pt resting in bed, respirations even & nonlabored, no s/sx of distress. Call light within reach.
[2021-11-14 07:37] LABS: BASOPHILS # (AUTO) 0.1 K/uL (0.00-0.22); BASOPHILS % (AUTO) 0.6 % (0.0-2.0); EOSINOPHILS # (AUTO) 0.1 K/uL (0-0.4); EOSINOPHILS % (AUTO) 0.6 % (0.0-4.0); HEMATOCRIT 43.7 % (36-52); HEMOGLOBIN 14.2 g/dL (12.0-18.0); LYMPHOCYTES % (AUTO) 21.4 % (20.5-51.1); MEAN CORPUSCULAR HEMOGLOBIN 28 pg (27-31); MEAN CORPUSCULAR HGB CONC 33 g/dL (33-37); MEAN CORPUSCULAR VOLUME 87.6 fL (80-94); MONOCYTES # (AUTO) 0.8 K/uL (0.8-1.0); NEUTROPHILS # (AUTO) 6.3 K/uL (1.8-7.7); NEUTROPHILS % (AUTO) 68.4 % (42.2-75.2); PLATELET COUNT (AUTO) 275 K/uL (140-450); RED BLOOD CELL COUNT(AUTO) 4.99 MIL/uL (4.20-6.10); RED CELL DISTRIBUTION WIDTH 16.8 % (11.6-13.7); WHITE BLOOD COUNT (AUTO) 9.2 K/uL (4.8-10.8)
[2021-11-14 07:39] LABS: ANION GAP 14.7 (8-16); CARBON DIOXIDE 23.5 mmol/L (21-32); CREATININE 1.3 mg/dL (0.6-1.3); POTASSIUM 4.2 mmol/L (3.5-5.1)
[2021-11-14 08:00] VITALS: BP 118/77
[2021-11-14] MEDS: ESCITALOPRAM 20 MG TAB PO SCH (09:03)
[2021-11-14] MEDS: METOPROLOL 50 MG TAB PO SCH ×2 (09:04→21:41)
[2021-11-14] MEDS: HYDROcodone/APAP 5/325 MG 1 TAB TAB PO PRN ×2 (09:04→16:50)
[2021-11-14] MEDS: ATORVASTATIN 20 MG TAB PO SCH (09:04)
[2021-11-14] MEDS: PANTOPRAZOLE 40 MG TABEC PO SCH (09:04)
[2021-11-14] MEDS: APIXABAN 2.5 MG TAB PO SCH ×2 (09:10→21:41)
[2021-11-14 12:00] VITALS: BP 120/70
[2021-11-14] MEDS: NACL 0.9% 1,000 ML IV SCH (13:44)
--- NOTE | 2021-11-14 14:52 | NUR ---
11/14/21 RD INITIAL ASSESSMENT COMPLETED PLEASE REFER TO NUTRITION ASSESSMENT UNDER CARE ACTIVITY FOR ESTIMATED NUTRITIONAL NEEDS. 1. CONTINUE CARDIAC DIET TOLERATED 2. RD TO FOLLOW-UP 7 DAYS, LOW RISK (DOWNGRADED D/T PT EATING WELL) MIGUEL MORT[address] RD
[2021-11-14 16:00] VITALS: BP 117/62
[2021-11-14 20:00] VITALS: BP 115/79
[2021-11-15] MEDS: PYRIDOSTIGMINE 60 MG TAB PO SCH ×4 (00:34→18:24)
[2021-11-15] MEDS: HYDROcodone/APAP 5/325 MG 1 TAB TAB PO PRN ×2 (00:45→06:37)
[2021-11-15] MEDS: NACL 0.9% 1,000 ML IV SCH ×2 (03:59→16:18)
[2021-11-15 04:00] VITALS: BP 112/63
[2021-11-15 06:59] LABS: BASOPHILS # (AUTO) 0.1 K/uL (0.00-0.22); EOSINOPHILS # (AUTO) 0.1 K/uL (0-0.4); EOSINOPHILS % (AUTO) 0.7 % (0.0-4.0); HEMATOCRIT 42.3 % (36-52); HEMOGLOBIN 13.9 g/dL (12.0-18.0); LYMPHOCYTES # (AUTO) 1.6 K/uL (2.0-11.5); MEAN CORPUSCULAR HEMOGLOBIN 29 pg (27-31); MEAN CORPUSCULAR HGB CONC 33 g/dL (33-37); MEAN CORPUSCULAR VOLUME 87.6 fL (80-94); MONOCYTES # (AUTO) 0.7 K/uL (0.8-1.0); MONOCYTES % (AUTO) 6.7 % (1.7-9.3); NEUTROPHILS # (AUTO) 7.6 K/uL (1.8-7.7); NEUTROPHILS % (AUTO) 75.6 % (42.2-75.2); PLATELET COUNT (AUTO) 284 K/uL (140-450); RED BLOOD CELL COUNT(AUTO) 4.83 MIL/uL (4.20-6.10); RED CELL DISTRIBUTION WIDTH 17.3 % (11.6-13.7); WHITE BLOOD COUNT (AUTO) 10.1 K/uL (4.8-10.8)
--- NOTE | 2021-11-15 07:30 | NUR ---
RECEIVED REPORT FROM GOLF BALL WINDER NURSE FOR CONTINUITY OF CARE. PT IS RESTING WITH BREATHING EVEN AND UNLABORED.NO SIGNS OF DISTRESS NOTED. IV IS PATENT AND INTACT. PT IS ON RA. PT IS STABLE.
[2021-11-15 08:00] VITALS: BP 128/88
[2021-11-15 08:00] LABS: ANION GAP 11.7 (8-16); CARBON DIOXIDE 25.9 mmol/L (21-32); CREATININE 1.2 mg/dL (0.6-1.3); POTASSIUM 4.6 mmol/L (3.5-5.1)
[2021-11-15] MEDS: APIXABAN 2.5 MG TAB PO SCH ×2 (09:00→21:21)
[2021-11-15] MEDS: PANTOPRAZOLE 40 MG TABEC PO SCH (09:52)
[2021-11-15] MEDS: METOPROLOL 50 MG TAB PO SCH ×2 (09:52→21:20)
[2021-11-15] MEDS: ESCITALOPRAM 20 MG TAB PO SCH (09:52)
[2021-11-15] MEDS: ATORVASTATIN 20 MG TAB PO SCH (09:52)
[2021-11-15] MEDS: MORPHINE SULFATE 2 MG/ML SYR IVP PRN (10:41)
--- NOTE | 2021-11-15 11:43 | NUR ---
PAIN MED WAS EFFECTIVE A PER MD ORDER AND REASSESSED ONE HOUR LATER. PT IS RESTING WITH BREATHING EVEN AND UNLABORED.NO SIGNS OF DISTRESS NOTED. IV IS PATENT AND INTACT. PT IS ON RA. PT IS STABLE.
[2021-11-15 12:00] VITALS: BP 124/72
--- NOTE | 2021-11-15 14:00 | NUR ---
PT IS RESTING WITH BREATHING EVEN AND UNLABORED.NO SIGNS OF DISTRESS NOTED. IV IS PATENT AND INTACT. PT IS ON RA. PT IS STABLE.
[2021-11-15 16:00] VITALS: BP 129/74
[2021-11-15] MEDS: metroNIDAZOLE 500 MG TAB PO SCH (17:00)
--- NOTE | 2021-11-15 17:00 | NUR ---
PT IS RESTING WITH BREATHING EVEN AND UNLABORED.NO SIGNS OF DISTRESS NOTED. IV IS PATENT AND INTACT. PT IS ON RA. PT IS STABLE.
--- NOTE | 2021-11-15 19:55 | NUR ---
ENDORSED TO BARREL CHARRER NURSE FOR CONTINUITY OF CARE.
--- NOTE | 2021-11-15 19:55 | NUR ---
RECEIVED PT AAOX4 , NID - [id number] WNL , ON TELE MONITOR , IV SITE INTACT AND PATENT , NO COMPLAIN MADE AT THIS TIME , PLOC DISCUSSED AND VERBALIZES UNDERSTANDING , WILL CONT. TO MONITOR , CALL LIGHT WITHIN REACH .
[2021-11-15 20:00] VITALS: BP 130/75
[2021-11-16] VITALS: BP 140/78
--- NOTE | 2021-11-16 00:30 | NUR ---
C/O PAIN , BP 130/92 , 02 SA T WNL , WILL MEDICATE .
[2021-11-16] MEDS: HYDROcodone/APAP 5/325 MG 1 TAB TAB PO PRN ×2 (01:00→06:43)
[2021-11-16 04:00] VITALS: BP 142/89
--- NOTE | 2021-11-16 04:00 | NUR ---
ROUNDS , NID O2 SAT WNL . CALL LIGHT WITHIN REACH
[2021-11-16] MEDS: NACL 0.9% 1,000 ML IV SCH ×2 (04:25→16:11)
--- NOTE | 2021-11-16 06:00 | NUR ---
ROUNDS , C/O PAIN - WILL MEDICATE .
[2021-11-16] MEDS: PYRIDOSTIGMINE 60 MG TAB PO SCH ×4 (06:43→17:45)
[2021-11-16 06:56] LABS: BASOPHILS # (AUTO) 0.1 K/uL (0.00-0.22); BASOPHILS % (AUTO) 0.8 % (0.0-2.0); EOSINOPHILS # (AUTO) 0.1 K/uL (0-0.4); EOSINOPHILS % (AUTO) 0.9 % (0.0-4.0); HEMATOCRIT 40.4 % (36-52); HEMOGLOBIN 13.2 g/dL (12.0-18.0); LYMPHOCYTES # (AUTO) 1.8 K/uL (2.0-11.5); LYMPHOCYTES % (AUTO) 25.3 % (20.5-51.1); MEAN CORPUSCULAR HEMOGLOBIN 29 pg (27-31); MEAN CORPUSCULAR HGB CONC 33 g/dL (33-37); MEAN CORPUSCULAR VOLUME 87.4 fL (80-94); MONOCYTES # (AUTO) 0.7 K/uL (0.8-1.0); MONOCYTES % (AUTO) 9.9 % (1.7-9.3); NEUTROPHILS # (AUTO) 4.4 K/uL (1.8-7.7); NEUTROPHILS % (AUTO) 63.1 % (42.2-75.2); PLATELET COUNT (AUTO) 302 K/uL (140-450); RED BLOOD CELL COUNT(AUTO) 4.62 MIL/uL (4.20-6.10); RED CELL DISTRIBUTION WIDTH 16.8 % (11.6-13.7)
--- NOTE | 2021-11-16 07:20 | NUR ---
ENDORSED - PT -STABLE .
--- NOTE | 2021-11-16 07:21 | NUR ---
RECEIVED REPORT FROM CLERICAL AND OFFICE SUPPORT WORKERS NURSE FOR CONTINUITY OF CARE. PT IS RESTING WITH BREATHING EVEN AND UNLABORED.NO SIGNS OF DISTRESS NOTED. IV IS PATENT AND INTACT. PT IS ON RA. PT IS STABLE.
[2021-11-16 07:25] LABS: ANION GAP 11.6 (8-16); CARBON DIOXIDE 27.8 mmol/L (21-32); CREATININE 1.3 mg/dL (0.6-1.3); POTASSIUM 4.4 mmol/L (3.5-5.1)
[2021-11-16 08:00] VITALS: BP 132/99
[2021-11-16] MEDS: APIXABAN 2.5 MG TAB PO SCH (09:00)
[2021-11-16] MEDS: METOPROLOL 50 MG TAB PO SCH (10:02)
[2021-11-16] MEDS: metroNIDAZOLE 500 MG TAB PO SCH ×3 (10:02→16:11)
[2021-11-16] MEDS: ESCITALOPRAM 20 MG TAB PO SCH (10:03)
[2021-11-16] MEDS: ATORVASTATIN 20 MG TAB PO SCH (10:03)
[2021-11-16] MEDS: PANTOPRAZOLE 40 MG TABEC PO SCH (10:03)
[2021-11-16] MEDS: MORPHINE SULFATE 2 MG/ML SYR IVP PRN (11:20)
--- NOTE | 2021-11-16 12:00 | NUR ---
PT IS RESTING WITH BREATHING EVEN AND UNLABORED.NO SIGNS OF DISTRESS NOTED. IV IS PATENT AND INTACT. PT IS ON RA. PT IS STABLE.
[2021-11-16] MEDS ORDERED: METR-435 PO (12:46)
[2021-11-16] MEDS ORDERED: PANT40EC56 PO (12:46)
[2021-11-16] MEDS ORDERED: METO50TA99 PO (12:46)
[2021-11-16] MEDS ORDERED: LOPERAMIDE 2 MG CAP PO SCH (15:45)
--- NOTE | 2021-11-16 16:00 | NUR ---
PT IS RESTING WITH BREATHING EVEN AND UNLABORED.NO SIGNS OF DISTRESS NOTED. IV IS PATENT AND INTACT. PT IS ON RA. PT IS STABLE.
[2021-11-16 16:32] VITALS: BP 132/99
--- NOTE | 2021-11-16 17:30 | NUR ---
PT IV TAKEN OUT. PT STABLE. PICKED UP BY [employer] TO HIS [employer] WHERE HE HAS FRIEND.
== END 2021-11-16 18:22 | disposition home or self-care (01) | DRG 720 ==
LOC: MED 07:56 → MTU 13:55
PROVIDERS: ADMIT Hospitalist; ATTEND Hospitalist
DX: A41.9 Sepsis, unspecified organism (principal); N17.0 Acute kidney failure with tubular necrosis; G92.9 Unspecified toxic encephalopathy; G70.00 Myasthenia gravis without (acute) exacerbation; E87.1 Hypo-osmolality and hyponatremia; E86.0 Dehydration; I48.91 Unspecified atrial fibrillation; I50.9 Heart failure, unspecified; I13.0 Hypertensive heart and chronic kidney disease with heart failure and stage 1 through stage 4 chronic kidney disease, or unspecified chronic kidney disease; N18.9 Chronic kidney disease, unspecified; E78.5 Hyperlipidemia, unspecified; Z96.651 Presence of right artificial knee joint; F15.10 Other stimulant abuse, uncomplicated; I25.10 Atherosclerotic heart disease of native coronary artery without angina pectoris; K57.30 Diverticulosis of large intestine without perforation or abscess without bleeding; J44.9 Chronic obstructive pulmonary disease, unspecified; K76.9 Liver disease, unspecified; Z20.822 Contact with and (suspected) exposure to COVID-19; Z88.0 Allergy status to penicillin; Z79.2 Long term (current) use of antibiotics; Z79.01 Long term (current) use of anticoagulants; Z79.82 Long term (current) use of aspirin; Z79.899 Other long term (current) drug therapy; Z90.49 Acquired absence of other specified parts of digestive tract; Z91.14 Patient's other noncompliance with medication regimen
CPT/HCPCS: 36415; 71045; 74018; 80048; 80053; 81001; 82140; 83605; 83690; 83735; 83880; 84100; 84443; 84484; 85025; 85610; 85730; 87040; 87070; 87081; 96361; 96365; 96367; 96375; 96376; 99291; J0696; J1160; J2270; J3370; J3490; J7030; J7060; Q0092